=== PATIENT | male | born 1960 | race Caucasian/White ===

== ENCOUNTER 2018-04-08 15:13 | Outpatient (REF) | payer MEDICAID, SELFPAY ==
[2018-04-08 20:46] LABS: Albumin 3.7 g/dL (3.4-5.0); Calcium 8.8 mg/dL (8.5-10.1)
== END 2018-04-08 15:14 ==
LOC: NCHCN 15:13
PROVIDERS: PCP Nurse Practitioner Family; Visit Provider Registered Nurse
DX: E83.51 Hypocalcemia (principal)
CPT/HCPCS: 82040; 82310

== ENCOUNTER 2018-09-22 10:47 | Outpatient (REF) | payer MEDICAID, SELFPAY ==
[2018-09-22 21:28] LABS: Abs Immature Grans 0.02 k/cumm (0.0-0.09); Absolute Basophil Count 0.07 k/cumm (0.0-0.2); Absolute Eosinophil Count 0.17 k/cumm (0.0-0.7); Absolute Lymphocyte Count 1.13 k/cumm (1.2-3.4); Absolute Monocyte Count 1.04 k/cumm (0.11-0.7); Absolute Neutrophil Count 7.55 k/cumm (1.2-6.7); Basophils % 0.7; Eosinophils % 1.7; HCT 46.5 % (40.0-50.0); HGB 16.5 g/dL (13.5-17.5); Immature Grans % 0.2; Lymphocytes % 11.3; Mean Corp. HGB Concentration 35.5 g/dL (32.0-36.0); Mean Corpuscular Hemoglobin 32.3 pg (27.0-33.0); Mean Platelet Volume 10.3 fL (8.0-11.0); Monocytes % 10.4; Neutrophils % 75.7; Platelet Count 232 x1000/uL (130-400); RBC 5.11 m/cumm (4.50-6.00); RBC Distribution Width 12.8 % (11.8-14.1); White Blood Cell Count 9.98 k/cumm (4.4-10.8)
[2018-09-22 21:35] LABS: ALT 68 U/L (12-78); AST 82 U/L (15-37); Albumin 3.9 g/dL (3.4-5.0); Alkaline Phosphatase 98 U/L (46-116); Anion Gap 10.3 mmol/L (3-11); BUN 9 mg/dL (7-18); Bilirubin, Total 0.5 mg/dL (0.2-1.0); CO2 30.7 mmol/L (21.0-32.0); Calcium 9.2 mg/dL (8.5-10.1); Chloride 96 mmol/L (98-107); Glucose 111 mg/dL (70-100); Magnesium 1.6 mg/dL (1.8-2.4); Potassium 3.9 mmol/L (3.5-5.1); Sodium 137 mmol/L (136-145); Total Protein 8.1 g/dL (6.4-8.2)
== END 2018-09-22 11:07 ==
LOC: NCHCN 10:47
PROVIDERS: PCP Nurse Practitioner Family; Visit Provider Registered Nurse
DX: I10 Essential (primary) hypertension (principal); R05 Cough
CPT/HCPCS: 80053; 83735; 85025

== ENCOUNTER 2019-09-21 18:10 | Inpatient (IN) | payer MEDICAID, OTHER, SELFPAY ==
[2019-09-21] VITALS (54 sets, daily range): BP systolic 174–249; BP diastolic 99–173; PULSE 67–105; RESP 16–23; TEMP 36.1–36.9; O2SAT 93–97
[2019-09-21] MEDS: Oxymetazolone 0.05% SPRAY 15 ML BTL NS (18:25)
[2019-09-21 18:35] LABS: Abs Immature Grans 0.01 k/cumm (0.0-0.09); Absolute Basophil Count 0.13 k/cumm (0.0-0.2); Absolute Eosinophil Count 0.08 k/cumm (0.0-0.7); Absolute Lymphocyte Count 1.42 k/cumm (1.2-3.4); Absolute Neutrophil Count 5.94 k/cumm (1.2-6.7); Basophils % 1.5; Eosinophils % 0.9; HCT 41.9 % (40.0-50.0); HGB 14.8 g/dL (13.5-17.5); Immature Grans % 0.1 %; Lymphocytes % 16.6; Mean Corp. HGB Concentration 35.3 g/dL (32.0-36.0); Mean Corpuscular Volume 93.3 fL (80-95); Mean Platelet Volume 9.6 fL (8.0-11.0); Monocytes % 11.7; Neutrophils % 69.2; Platelet Count 254 x1000/uL (130-400); RBC 4.49 m/cumm (4.50-6.00); RBC Distribution Width 12.4 % (11.8-14.1); White Blood Cell Count 8.58 k/cumm (4.4-10.8)
--- NOTE | 2019-09-21 18:43 | DI.RAD_ITS ---
EXAM: XR CHEST 2V PA LATERAL CLINICAL HISTORY: cough 1 month TECHNIQUE: COMPARISON: No exams were available for comparison FINDINGS: Heart is not enlarged. Nodular opacity projected over left 6th rib anteriorly may represent nipple s hadow, question nodular opacity over right 6th rib anteriorly as well but asymmetric with the left. Additionally there is question vaguely nodular radiodensity seen more inferiorly projected over the l eft lung base and question of indistinct radiodensities projected anteriorly on the lateral view. Co nsidering the patient's history of persistent cough, possibility of consolidation or mass lesion woul d have to be considered. Additional evaluation with chest CT should be considered. IMPRESSION:
[2019-09-21 18:44] LABS: INR 1.1 (0.9-1.1)
[2019-09-21 18:46] LABS: ALT 88 U/L (16-63); AST 66 U/L (15-37); Albumin 4.1 g/dL (3.4-5.0); Alkaline Phosphatase 93 U/L (46-116); Anion Gap 10.5 mmol/L (3-11); BUN 14 mg/dL (7-18); CO2 30.5 mmol/L (21.0-32.0); CREATININE 0.89 mg/dL (0.70-1.30); Calcium 9.5 mg/dL (8.5-10.1); Chloride 95 mmol/L (98-107); Glucose 103 mg/dL (74-106); Potassium 3.3 mmol/L (3.5-5.1); Sodium 136 mmol/L (136-145); Total Protein 8.7 g/dL (6.4-8.2)
--- NOTE | 2019-09-21 18:46 | NUR.NOTE ---
Nursing Note: Nurse contacted two pharmacies that the patient stated he uses to get a medication list Spoke to the pharmacist at [facility] in [place], [place] who gave the following list but stated that it was last picked up in 2015 and was prescribed by a [facility] by Antony Miller: Magnesium Oxide 400mg Klor-Con 20 meq Hydroxazine 25 mg Hydrochlorathiazide 25 mg Sertraline 50 mg Lisinopril 20 mg Clonidine 0.1 mg Spoke to the pharmacist at [facility] in [place], [place] who gave the following list prescribed by Jaqueline Clemente HFA 230/21 (picked up 05/29/19) Albuterol 0.83% (not picked up 05/21) ProAir (3 inhalers) (picked up 05/29/19) Magnesium (picked up 01/18) Postassium (picked up 01/18) Celexa 20 mg (picked up 01/18) Patient stated that he does not use any other pharmacies.
--- NOTE | 2019-09-21 18:47 | ED.GENADUL_ITS ---
Discharge Plan Disposition Patient Disposition: [facility] INPATIENT Condition: Good Discharge Details Chief Complaint: Epistaxis Clinical Impression: Uncontrolled hypertension, Acute anterior epistaxis Admit Date/Time: 09/22/19 11:30 Admit Provider: Sreekanth Treviño Attending Provider: Carlos Padgett Primary Care Provider: FARIBA STOREY ED Provider: Gabriel Santos Discharge Data Discharge Date/Time-TO BE ENTERED AT DEPARTURE: 09/21/19 22:50 Medical Decision Making 18:50 --59-year-old male with history of hypertension, noncompliant with antihypertensives, here with bloody nose. Patient's pharmacy contacted and notes has not filled prescription for antihypertensives since 2016. He was on lisinopril 20 mg in the past. I will restart this. He apparently was also on hydrochlorothiazide and clonidine in the past. Patient also notes cough for the past 1 month. Consider pneumonia. Plan to check chest x-ray. Single squirt of Afrin was administered to bilateral nose and nasal clamp applied. --On reassessment BP remained elevated. He was given lisinopril 20 mg without response. Clonidine 0.1 mg administered. Labs reviewed and mild hypokalemia of 3.3 noted. AST and ALT mildly elevated. Platelets and INR normal. 20:00 --nasal clamp was removed and patient had persistent epistaxis. Patient provided informed consent to proceed with nasal packing. Rapid Rhino nasal packing inserted left nare and patient had resolution of epistaxis. -- Blood pressure remains elevated. Plan to give labetalol 20 mg IV. Plan for admission to control blood pressure. Chest x-ray was reviewed and interpreted by radiology: IMPRESSION: 1. Small nodular opacity at the left lung base may reflect nipple shadow. Consider repeat radiograph with nipple markers. 2. Additional small nodular opacity in the mid-lower left lung. Consider further evaluation with CT or recommend follow-up radiograph to document stability/resolution. Will treat with Augmentin prophylactically for posterior nasal packing and will cover for questionable opacity on chest x-ray with associated cough. Patient will need admission for blood pressure control. I called and spoke with Dr. Treviño, discussed ED presentation and course, he will evaluate the patient for admission. HPI General Date/Time Provider Initiated Documentation: 09/21/19 18:13 . Limitations to Documentation: no limitations . HPI Narrative: 59-year-old male with history of hypertension, noncompliant with antihypertensive medications, here in custody of corrections, with chief complaint of bloody nose. Patient notes he had bloody nose since 6 AM this morning. No trauma. Nose is been oozing from bilateral nares. Patient states he has not taken his antihypertensives in weeks. Patient also states cough over the past 1 month. No fevers. No shortness of breath. No chest pain. Patient denies alcohol use or drug use. Related Data Home Medications Medication Instructions Recorded Confirmed albuterol sulfate 2 puff INHALATION Q4H PRN PRN 09/22/19 09/22/19 fluticasone propion-salmeterol 2 puff INHALATION BID 09/22/19 09/22/19 [Advair HFA] albuterol sulfate 2 puff IH Q6H PRN #18 gm 09/26/19 amlodipine 10 mg PO DAILY #30 tab 09/26/19 benzonatate 100 mg PO TID PRN #30 cap 09/26/19 budesonide-formoterol [Symbicort] 2 puff INHALATION BID #1 g 09/26/19 clonidine HCl [Catapres] 0.1 mg PO TID #90 tab 09/26/19 hydralazine 10 mg PO TID #90 tab 09/26/19 labetalol 200 mg PO BID #60 tab 09/26/19 lisinopril 40 mg PO DAILY #30 tab 09/26/19 multivitamin,zh-upki-oshqhzqz 1 tab PO DAILY #30 tab 09/26/19 [Therems-M] nicotine 7 mg TRANSDERMAL DAILY #30 ea 09/26/19 spironolactone 50 mg PO DAILY #30 tab 09/26/19 Previous Rx's Medication Instructions Recorded albuterol sulfate 2 puff IH Q6H PRN #18 gm 09/26/19 amlodipine 10 mg PO DAILY #30 tab 09/26/19 benzonatate 100 mg PO TID PRN #30 cap 09/26/19 budesonide-formoterol [Symbicort] 2 puff INHALATION BID #1 g 09/26/19 clonidine HCl [Catapres] 0.1 mg PO TID #90 tab 09/26/19 hydralazine 10 mg PO TID #90 tab 09/26/19 labetalol 200 mg PO BID #60 tab 09/26/19 lisinopril 40 mg PO DAILY #30 tab 09/26/19 multivitamin,sp-tkgn-cgieaxtm 1 tab PO DAILY #30 tab 09/26/19 [Therems-M] nicotine 7 mg TRANSDERMAL DAILY #30 ea 09/26/19 spironolactone 50 mg PO DAILY #30 tab 09/26/19 Allergies Allergy/AdvReac Type Severity Reaction Status Date / Time No Known Allergies Allergy Unverified 09/21/19 18:19 General Stated Complaint: Epistaxis INDY: 3 Review of Systems All systems reviewed & are unremarkable except as noted in HPI and below Constitutional Constitutional: Denies fever(s) Cardiovascular Cardiovascular: Denies dyspnea Respiratory Respiratory: Reports cough and Denies dyspnea [facility] Medical History (Updated 09/22/19 @ 11:39 by Cynthia Thao MD) COPD (chronic obstructive pulmonary disease) (Inactive) Hypertension (Inactive) Social History Smoking/Tobacco Use Status: Current every day Exam Const General: cooperative and no acute distress HENMT Head: normocephalic and atraumatic General nose exam: nasal discharge bloody bilaterally Mouth: moist mucous membranes Throat: posterior oropharynx normal Eyes Conjunctivae: normal conjunctivae Sclera: normal sclerae Neck Neck: trachea midline and supple Resp Effort & Inspection: normal respiratory effort, able to speak in complete sentences, not labored and not tachypneic Auscultation: rhonchi and no wheezes Cardio Jugular venous pressure: no JVD Rate: regular rate and not tachycardic Rhythm: regular rhythm GI Palpation: soft, not firm, no guarding, no masses, not rigid and nontender Skin General skin exam: no rashes or lesions noted Neuro General: alert, awake and tone normal Extrem General: no edema Psych Appearance: grossly normal Mental Status: mental status grossly normal Course Vital Signs Vital signs: Vital Signs Temperature 36.1 C L 09/21/19 18:13 Pulse 105 H 09/21/19 18:13 Respiratory Rate 20 09/21/19 18:13 Blood Pressure 209/144 H 09/21/19 18:13 Pulse Oximetry 96 09/21/19 18:13 Temperature 36.1 C L 09/21/19 18:13 Temperature Source Skin 09/21/19 18:13 Pulse 105 H 09/21/19 18:13 Respiratory Rate 20 09/21/19 18:13 Blood Pressure 209/144 H 09/21/19 18:13 Blood Pressure Position Sitting 09/21/19 18:13 Pulse Oximetry 96 09/21/19 18:13 Oxygen Delivery Method Room Air 09/21/19 18:13 Oxygen Flow Rate 0 09/21/19 18:13 Pain Level 5 09/21/19 18:13 Lab/Test Results Lab/Test Results: Laboratory Tests Range/Units 09/21/19 18:25 WBC (4.4-10.8) k/cumm 8.58 RBC (4.50-6.00) m/cumm 4.49 L Hgb (13.5-17.5) g/dL 14.8 Hct (40.0-50.0) % 41.9 MCV (80-95) fL 93.3 MCH (27.0-33.0) pg 33.0 MCHC (32.0-36.0) g/dL 35.3 RDW (11.8-14.1) % 12.4 Plt Count (130-400) x1000/uL 254 MPV (8.0-11.0) fL 9.6 Immature Gran % % 0.1 Neutrophils % 69.2 Lymphocytes % 16.6 Monocytes % 11.7 Eosinophils % 0.9 Basophils % 1.5 Absolute Neutrophils (1.2-6.7) k/cumm 5.94 Absolute Lymphocytes (1.2-3.4) k/cumm 1.42 Absolute Monocytes (0.11-0.7) k/cumm 1.00 H Absolute Eosinophils (0.0-0.7) k/cumm 0.08 Absolute Basophils (0.0-0.2) k/cumm 0.13 Procedures Epistaxis Control Time Out Performed: Yes Nostril: left Nose Prepped With: oxymetazoline Direct Inspection: unable to visualize Clots Removed by: blowing nose Device Inserted: hemostatic balloon (rapid rhino) Patient Tolerated Procedure: well and no complications Critical Care Time Critical Care Time Critical Care Time: Yes Total Critical Care Time: 45 Attestation: I spent greater than 45 minutes addressing this patient's life threats and providing critical care
[2019-09-21] MEDS: Lisinopril 10 MG TAB 20 MG PO (19:03)
--- NOTE | 2019-09-21 19:10 | DI.VRAD_ITS ---
PROCEDURE INFORMATION: Exam: XR Chest, 2 Views Exam date and time: 09/21/2019 6:45 PM Age: 59 years old Clinical indication: Patient HX: Cough 1 month TECHNIQUE: Imaging protocol: XR of the chest Views: 2 views. COMPARISON: No relevant prior studies available. FINDINGS: Lungs: Small nodular left basilar opacity. Additional small nodule in the mid-lower left lung Lungs are otherwise clear. Pleural space: Unremarkable. No pleural effusion. No pneumothorax. Heart/Mediastinum: Unremarkable. No cardiomegaly. Bones/joints: Unremarkable. IMPRESSION: 1. Small nodular opacity at the left lung base may reflect nipple shadow. Consider repeat radiograph with nipple markers. 2. Additional small nodular opacity in the mid-lower left lung. Consider further evaluation with CT or recommend follow-up radiograph to document stability/resolution. Dictated and Authenticated by: Garrett Paz MD. Ordering:SUZAN Rios MD
[2019-09-21] MEDS: cloNIDine 0.1 MG TAB PO (19:33)
[2019-09-21] MEDS: Labetalol 100 MG/20 ML VIAL 20 MG IVP ×2 (20:38→21:28)
--- NOTE | 2019-09-21 20:50 | W.PM.HP.N ---
Date of service: 09/21/19 Time of Service: 20:50 Assessment and Plan Assessment and plan (1) Hypertension: Status: Chronic Assessment and plan: Uncontrolled hypertension, at tthis point presumed due to non-compliance. Epistaxis is quite possibly direcct effect. Is responing well to current program, will continue Labetalol, Clonidine and Lisinopril .As per ENT protocol (this was saidd to be a posterior packing) will continue prophylactic Augmentin. As to ? pulmonary nodule, will obtain CT. History of Present Illness History of Present Illness Chief Complaint: epistaxis Narrative: 59 male with h/o HTN, off meds for some number of weeks, or longer. Here today with epistaxis all day. In ER findings of note for severe HTN, ass high as 240/170 at one point. Patient had nasal pack placed, and has received 0.1 mg Clonidine, 20 mg Lisinopril and 20 mg Labetalol. In addition was started on Augmentin 875 bid. Latest BP 191/116. Admitted for further management. Incidental finding of possible pulmonary nodule x 2 on CXR. patient is a smoker, and says he has had a cough for at least a month. Review of Systems All systems reviewed & are unremarkable except as noted in HPI and below PFSH Medical History Hypertension (Inactive) Meds Home Medications and Allergies Home Medications Medication Instructions Recorded Confirmed Type Unknown [No Known Home Meds] 09/21/19 09/21/19 History Allergies Allergy/AdvReac Type Severity Reaction Status Date / Time No Known Allergies Allergy Unverified 09/21/19 18:19 Exam Narrative Exam Narrative: 191/116, 80, 16, 36.1, HEENT pack left narus, slight oozing. Neck supple; lungs scatteered rhonchi; heart distant but RRR; abdomen soft and NT; extremities w/o edema; neuro Ox3, moves all 4s Results Labs Result diagrams: 09/21/19 18:25 09/21/19 18:25 Labs: Laboratory Results - last 24 hr 09/21/19 09/21/19 09/21/19 18:25 18:25 18:25 WBC 8.58 RBC 4.49 L Hgb 14.8 Hct 41.9 MCV 93.3 MCH 33.0 MCHC 35.3 RDW 12.4 Plt Count 254 MPV 9.6 Immature Gran % 0.1 Neutrophils % 69.2 Lymphocytes % 16.6 Monocytes % 11.7 Eosinophils % 0.9 Basophils % 1.5 Absolute Neutrophils 5.94 Absolute Lymphocytes 1.42 Absolute Monocytes 1.00 H Absolute Eosinophils 0.08 Absolute Basophils 0.13 PT 11.0 INR 1.1 Sodium 136 Potassium 3.3 L Chloride 95 L Carbon Dioxide 30.5 Anion Gap 10.5 BUN 14 Creatinine 0.89 Estimated GFR/1.73 m2 >= 60.00 Glucose 103 Calcium 9.5 Total Bilirubin 1.0 AST 66 H ALT 88 H Alkaline Phosphatase 93 Total Protein 8.7 H Albumin 4.1 Last Vital Signs Temp 36.1 C L 09/21/19 18:13 Pulse 80 09/21/19 20:38 Resp 16 09/21/19 20:16 BP 213/119 H 09/21/19 20:38 Pulse Ox 94 L 09/21/19 20:16
[2019-09-21] MEDS: Amoxicillin 875/Clav. 125 TAB PO (20:54)
[2019-09-21] MEDS: Potassium Chloride 20 MEQ TABCR PO (22:08)
[2019-09-21] MEDS: Labetalol 100 MG TAB 200 MG PO (22:08)
[2019-09-21] MEDS: Acetaminophen 325 MG TAB 650 MG PO (23:42)
[2019-09-22] VITALS (122 sets, daily range): BP systolic 101–231; BP diastolic 51–146; PULSE 60–100; RESP 12–29; TEMP 36.5–37.2; O2SAT 89–98
[2019-09-22] MEDS: Normal Saline Flush 10 ML SYR IVP (02:16)
[2019-09-22] MEDS: Acetaminophen 325 MG TAB 650 MG PO ×4 (03:51→22:21)
[2019-09-22] MEDS: hydrALAZINE 10 MG TAB PO ×2 (03:52→06:44)
[2019-09-22] MEDS: Labetalol 100 MG TAB 200 MG PO ×2 (06:43→20:38)
--- NOTE | 2019-09-22 07:46 | INITIAL_ITS ---
- If Service Date Differs Date of service: 09/22/19 Time of Service: 07:46 Care Management Initial Assess REASON FOR HOSPITALIZATION:: Hypertension, Epistaxis PAST MEDICAL HISTORY/PAST SURGICAL HISTORY:: HTN PREVIOUS FUNCTIONAL STATUS/SOCIAL/FAMILY SUPPORTS:: Nick currently [facility] at the [facility] is able to attend to his own needs and indepedent with ADL's. CURRENT FUNCTIONAL STATUS:: Nick is lying in bed he is alert. Guards are present. Nick may be able to return to the correctional facility today pending cessation of the bleeding and blood pressure control. ADVANCE DIRECTIVES:: None on file - offered forms and assitance with completion Has patient been provided with information about the portal?: Yes CODE STATUS:: Full Code INSURANCE COVERAGE / FINANCIAL ISSUES:: [employer], [facility] CURRENT HOME/COMMUNITY SERVICES/EQUIPMENT:: Patient is currently lodged at the [facility] in [facility] PRIMARY CARE PHYSICIAN:: Provider at the [facility] POTENTIAL DISCHARGE NEEDS:: Follow up as determined by provider and ongoing management of HTN PATIENT/FAMILY EDUCATION NEEDS:: Discharge education, limitations and follow up plan of care including ask me three and self management. ANTICIPATED BARRIERS TO DISCHARGE:: None identified TRANSPORTATION:: Via mid level provider coordinated through [facility]. PLAN:: Nick is currently being treated as an observation for HTN. He will be discharged back to the correctional facility at time of discharge, with correctional facility staff coordinated by their staff.
[2019-09-22 08:04] LABS: Abs Immature Grans 0.01 k/cumm (0.0-0.09); Absolute Basophil Count 0.08 k/cumm (0.0-0.2); Absolute Eosinophil Count 0.16 k/cumm (0.0-0.7); Absolute Lymphocyte Count 1.07 k/cumm (1.2-3.4); Absolute Monocyte Count 0.66 k/cumm (0.11-0.7); Absolute Neutrophil Count 3.74 k/cumm (1.2-6.7); Basophils % 1.4; Eosinophils % 2.8; HCT 39.8 % (40.0-50.0); HGB 13.8 g/dL (13.5-17.5); Immature Grans % 0.2 %; Lymphocytes % 18.7; Mean Corp. HGB Concentration 34.7 g/dL (32.0-36.0); Mean Corpuscular Hemoglobin 32.7 pg (27.0-33.0); Mean Corpuscular Volume 94.3 fL (80-95); Mean Platelet Volume 9.5 fL (8.0-11.0); Monocytes % 11.5; Neutrophils % 65.4; Platelet Count 220 x1000/uL (130-400); RBC 4.22 m/cumm (4.50-6.00); RBC Distribution Width 12.3 % (11.8-14.1); White Blood Cell Count 5.72 k/cumm (4.4-10.8)
--- NOTE | 2019-09-22 08:21 | W.PM.PROGNOT ---
Date of Service Date of service: 09/22/19 Time of Service: 11:24 Assessment and Plan Assessment and plan (1) Hypertensive urgency: Status: Acute Assessment and plan: Add norvasc, prn metoprolol. Continue to monitor in ICU - if BP remains uncontrolled, would start cardene gtt. (2) Epistaxis: Status: Acute Assessment and plan: Provide clip/apply pressure to the nasal trumpet in place. Continue augmentin to prevent toxic shock syndrome. (3) Acute exacerbation of chronic obstructive pulmonary disease (COPD): Status: Acute Assessment and plan: Mild - there is no evidence of pneumonia or mass on CT (CXR read was not definitive). Obtaining sputum culture. Provide nebs. I spoke with patient's pharmacy - he normally take albuterol and advair. We will replace that with symbicort here. Add doxycycline to augmentin to cover for atypical organisms. No role for steroids at this time. (4) Hypokalemia: Status: Acute Assessment and plan: Replete; recheck in am (5) Hypomagnesemia: Status: Acute Assessment and plan: Replete, recheck in am (6) Discharge planning issues: Status: Acute Assessment and plan: Full code. Keep in ICU. Admit to inpatient status. Total Critical Care Time 40 minutes. (7) DVT prophylaxis: Status: Acute Assessment and plan: TEDs + SCD's. Avoid chemical dvt ppx in setting of acute bleeding. Subjective Subjective Interval history since last seen: Latest BP 211/123. Patient states he felt dizzy earlier, but does not now. Denies chest pain, states he has been short of breath and had had a productive cough with yellow sputum x 1 month. Denies n/v. Nasal trumpet is saturated and dripping. Seen by Dr Dumas, who recommended using a clip and applying pressure, but not removing/exchanging trumpet. Nursing noted crackles/wheezes in the lungs this morning, better with albuterol inhaler. Patient states he takes 2 inhalers at home. One is albuterol; he is not sure what the 2nd one is. He fills his prescriptions at [facility] in [place]. Exam Narrative Exam Narrative: General: Pleasant middle-aged male, sitting up in bed, wiping nose with trumpet in L nostril - leaking HEENT: EOMI, MMM Heart: RRR, no m/r/g Lungs: Diminished breath sounds B Abdomen: soft, nontender, nondistended. Extremities: no e/c/c BLE's, 2+ pedal pulses B Objective Objective Clinical Data: Abnormal lab results 09/21/19 09/21/19 09/22/19 Range/Units 18:25 18:25 08:00 RBC 4.49 L 4.22 L (4.50-6.00) m/cumm Hct 39.8 L (40.0-50.0) % Absolute Lymphocytes 1.07 L (1.2-3.4) k/cumm Absolute Monocytes 1.00 H (0.11-0.7) k/cumm Potassium 3.3 L (3.5-5.1) mmol/L Chloride 95 L (98-107) mmol/L AST 66 H (15-37) U/L ALT 88 H (16-63) U/L Total Protein 8.7 H (6.4-8.2) g/dL Vital Signs Temperature 36.5 C 09/22/19 03:01 Temperature Source Temporal Artery Scan 09/21/19 23:19 Pulse 69 09/22/19 02:31 Pulse 70 09/22/19 02:31 Respiratory Rate 16 09/22/19 02:31 Respiratory Effort 09/22/19 03:01 Respiratory Depth Normal 09/22/19 03:01 Respiratory Pattern Normal 09/22/19 03:01 Blood Pressure 191/104 H 09/22/19 02:31 Blood Pressure Mean 124 09/22/19 02:31 Blood Pressure Position Sitting 09/21/19 18:13 Pulse Oximetry 96 09/22/19 02:31 Oxygen Delivery Method Room Air 09/22/19 03:01 Oxygen Flow Rate 0 09/22/19 03:01 Pain Level 7 09/22/19 03:51 Intake & Output 09/21/19 09/21/19 09/22/19 11:59 23:59 11:59 Intake Total 300 / 300 Balance 300 / 300 Weight 80 kg Intake: Oral 300 / 300 Laboratory Results WBC 5.72 k/cumm (4.4-10.8) D 09/22/19 08:00 RBC 4.22 m/cumm (4.50-6.00) L 09/22/19 08:00 Hgb 13.8 g/dL (13.5-17.5) 09/22/19 08:00 Hct 39.8 % (40.0-50.0) L 09/22/19 08:00 MCV 94.3 fL (80-95) 09/22/19 08:00 MCH 32.7 pg (27.0-33.0) 09/22/19 08:00 MCHC 34.7 g/dL (32.0-36.0) 09/22/19 08:00 RDW 12.3 % (11.8-14.1) 09/22/19 08:00 Plt Count 220 x1000/uL (130-400) 09/22/19 08:00 MPV 9.5 fL (8.0-11.0) 09/22/19 08:00 Immature Gran % 0.2 % 09/22/19 08:00 Neutrophils % 65.4 09/22/19 08:00 Lymphocytes % 18.7 09/22/19 08:00 Monocytes % 11.5 09/22/19 08:00 Eosinophils % 2.8 09/22/19 08:00 Basophils % 1.4 09/22/19 08:00 Absolute Neutrophils 3.74 k/cumm (1.2-6.7) 09/22/19 08:00 Absolute Lymphocytes 1.07 k/cumm (1.2-3.4) L 09/22/19 08:00 Absolute Monocytes 0.66 k/cumm (0.11-0.7) 09/22/19 08:00 Absolute Eosinophils 0.16 k/cumm (0.0-0.7) 09/22/19 08:00 Absolute Basophils 0.08 k/cumm (0.0-0.2) 09/22/19 08:00 PT 11.0 sec (9.3-11.0) 09/21/19 18:25 INR 1.1 (0.9-1.1) 09/21/19 18:25 Sodium 136 mmol/L (136-145) 09/21/19 18:25 Potassium 3.3 mmol/L (3.5-5.1) L 09/21/19 18:25 Chloride 95 mmol/L (98-107) L 09/21/19 18:25 Carbon Dioxide 30.5 mmol/L (21.0-32.0) 09/21/19 18:25 Anion Gap 10.5 mmol/L (3-11) 09/21/19 18:25 BUN 14 mg/dL (7-18) 09/21/19 18:25 Creatinine 0.89 mg/dL (0.70-1.30) 09/21/19 18:25 Estimated GFR/1.73 m2 >= 60.00 (mL/min/1.73m2) 09/21/19 18:25 Glucose 103 mg/dL (74-106) 09/21/19 18:25 Calcium 9.5 mg/dL (8.5-10.1) 09/21/19 18:25 Total Bilirubin 1.0 mg/dL (0.2-1.0) 09/21/19 18:25 AST 66 U/L (15-37) H 09/21/19 18:25 ALT 88 U/L (16-63) H 09/21/19 18:25 Alkaline Phosphatase 93 U/L (46-116) 09/21/19 18:25 Total Protein 8.7 g/dL (6.4-8.2) H 09/21/19 18:25 Albumin 4.1 g/dL (3.4-5.0) 09/21/19 18:25
[2019-09-22 08:22] LABS: Anion Gap 9.7 mmol/L (3-11); BUN 14 mg/dL (7-18); CO2 30.3 mmol/L (21.0-32.0); CREATININE 0.93 mg/dL (0.70-1.30); Chloride 96 mmol/L (98-107); Glucose 127 mg/dL (74-106); Magnesium 1.2 mg/dL (1.8-2.4); Potassium 3.1 mmol/L (3.5-5.1); Sodium 136 mmol/L (136-145)
[2019-09-22 08:31] LABS: Troponin I < 0.05 ng/Ml (<0.06)
[2019-09-22] MEDS: Albuterol 2.5 MG/3 ML INH SOLN VIAL UPD ×2 (08:38→14:10)
[2019-09-22] MEDS: Lisinopril 20 MG TAB PO (08:39)
[2019-09-22] MEDS: Multivitamin w/Minerals TAB 1 TAB PO (08:39)
[2019-09-22] MEDS: Amoxicillin 875/Clav. 125 TAB PO ×2 (08:39→20:38)
[2019-09-22] MEDS: Thiamine 100 MG TAB PO (08:39)
[2019-09-22] MEDS: Omnipaque 350 MG/ML 100 ML BTL IJ (09:24)
--- NOTE | 2019-09-22 09:35 | DI.CT_ITS ---
EXAM: CT CHEST W CLINICAL HISTORY: PNA vs malignancy TECHNIQUE: The exam was performed according to the usual protocol. COMPARISON: No exams were available for comparison FINDINGS: CT examination of the chest was performed with intravenous infusion of 70 cc of Omnipaque 350. Image s obtained through the upper abdomen show hepatic steatosis and show unremarkable appearance of visua lized portions of spleen, adrenals, kidneys and pancreas. There is moderate generalized central lobular emphysema. No intrapulmonary mass. No significant con solidation. Minimal nonspecific perihilar ground-glass opacities on the left. Tracheobronchial tree appears intact. No mediastinal or hilar adenopathy. Thoracic aorta and major branches appear intac t. Pulmonary arterial circulation suboptimally opacified, no central pulmonary embolus identified. No pleural effusion. IMPRESSION: No pulmonary nodule or consolidation. Moderate central lobular emphysema noted. Hepatic steatosis noted.
[2019-09-22 10:19] LABS: Bilirubin Negative (Negative); Blood Small (Negative); Clarity Clear (Clear); Glucose Negative (Negative); Ketones Negative (Negative); Leukocyte Esterase Negative (Negative); Nitrite Negative (Negative)
[2019-09-22 10:27] LABS: Bacteria Rare HPF (Negative); Casts Negative LPF (Negative); Crystals Negative HPF (Negative); Epithelial Cells Rare HPF (Negative); Mucus Trace (Negative); RBC 20-50 HPF (0-2)
[2019-09-22 10:28] LABS: C & S Indicated? Yes
[2019-09-22 10:32] LABS: *AMPHETAMINES SCREEN URINE Negative (Negative); *BARBITURATES SCREEN URINE Negative (Negative); *BENZODIAZEPINES SCREEN URINE Negative (Negative); Cannabinoids THC Negative (Negative); Cocaine Screen,Urine Negative (Negative); METHADONE URINE SCREEN Negative (Negative); OPIATES URINE SCREEN Negative (Negative)
[2019-09-22 10:33] LABS: Tricyclic Antidepressants Negative (Negative)
[2019-09-22] MEDS: Magnesium Chloride 64 MG TABCR PO ×2 (11:01→20:00)
[2019-09-22] MEDS: DOXYCYCLINE 100 MG in Normal Saline 100 ML IVPB ×2 (11:02→22:23)
[2019-09-22] MEDS: POTASSIUM CHLORIDE 20 MEQ/100 ML BAG 50 MEQ IVPB ×2 (11:03→14:16)
[2019-09-22] MEDS: MAGNESIUM SULFATE 4 GM/100 ML BAG IVPB (11:22)
[2019-09-22] MEDS: amLODIPine 5 MG TAB PO (11:33)
[2019-09-22] MEDS: Nicotine 7 MG/24 HR PATCH TD (11:36)
[2019-09-22] MEDS: Metoprolol 5 MG/5 ML VIAL IVP (11:49)
--- NOTE | 2019-09-22 12:43 | PHARADMIT ---
Admission Pharmacy Clinical Review HYPERTENSIVE URGENCY, EPISTAXIS Code Status Full Code Current Weight 80 kg Renally Cleared and Narrow Therapeutic Index Meds CrCl ~87ml/min QTc Value / Action Taken n/a BP Control, Fever BP 214/119 Electrolytes reviewed Na 136, K+ 3.1, Mag 1.2 DVT Prophylaxis TEDs and SCDs (acute bleed) Opiate Usage / Scheduled Bowel Regimen Ordered None Plt/SCr for Heparin / Enoxaparin plt 220, Scr 0.93 INR for Warfarin H/H stable, WBC/Bands H/H 13.9/39.8, WBC 5.72 Antibiotic appropriateness Augmentin + Doxycycline (atypical coverage, copd exac) Cultures and Sensitivities Sputum: mixed gram+/-; urine pending Surgical ABX d/c within 24 hr DM control / Insulin Dosing None Heart Failure (Check EF%) (FREDDIE's, B-Block, Diuretics) amlodipine, clonidine (on hold), labetalol, lisinopril, metoprolol ivp prn, nicardipine gtt (started 09/22 ~1300) IV to PO Switch Home Meds Reviewed Yes pt bad historian/noncompliance Home Meds Not Ordered symbicort ordered in place of advair Comments Drug screen negative Augmentin started prophylactically for posterior nasal packing (prevent TSS), doxy added to cover atypicals Nicardipine gtt started ~1300 at 5mg/hr
[2019-09-22] MEDS: niCARdipine 25 MG in Normal Saline 240 ML 50 MG IV ×2 (13:19→18:21)
[2019-09-22] MEDS: cloNIDine 0.1 MG TAB PO (20:40)
[2019-09-23] VITALS (77 sets, daily range): BP systolic 106–194; BP diastolic 55–124; PULSE 67–94; RESP 12–22; TEMP 36–37; O2SAT 93–98
--- NOTE | 2019-09-23 01:36 | NUR.NOTE ---
BP down to101/72, 108/53, gtt stopped after being decreased to 2.5 mg. Bp now starting to increase. currently 146/79. Gtt remains off for now. Bp closely monitored. see vs.Nursing Note:
[2019-09-23] MEDS: niCARdipine 25 MG in Normal Saline 240 ML IV (02:33)
[2019-09-23] MEDS: Acetaminophen 325 MG TAB 650 MG PO ×2 (02:52→09:21)
[2019-09-23 06:37] LABS: HCT 37.7 % (40.0-50.0); Mean Corp. HGB Concentration 34.5 g/dL (32.0-36.0); Mean Corpuscular Hemoglobin 32.5 pg (27.0-33.0); Mean Corpuscular Volume 94.3 fL (80-95); Mean Platelet Volume 10.2 fL (8.0-11.0); Platelet Count 218 x1000/uL (130-400); RBC Distribution Width 12.1 % (11.8-14.1); White Blood Cell Count 5.52 k/cumm (4.4-10.8)
[2019-09-23 06:57] LABS: Anion Gap 9.9 mmol/L (3-11); BUN 12 mg/dL (7-18); CO2 29.1 mmol/L (21.0-32.0); CREATININE 0.84 mg/dL (0.70-1.30); Calcium 8.8 mg/dL (8.5-10.1); Calculated LDL 69 mg/dL; Chloride 98 mmol/L (98-107); Cholesterol 167 mg/dL (<200); Glucose 114 mg/dL (74-106); HDL Cholesterol 86 mg/dL (40-60); Magnesium 1.6 mg/dL (1.8-2.4); Sodium 137 mmol/L (136-145); Triglyceride 61 mg/dL (<150)
[2019-09-23 06:59] LABS: Potassium 2.9 mmol/L (3.5-5.1)
--- NOTE | 2019-09-23 08:29 | PGE_ITS ---
Date of Service Date of service: 09/23/19 Time of Service: 12:21 Assessment and Plan Assessment and plan (1) Hypertensive urgency: Status: Acute Assessment and plan: BP's better right now. Will monitor off cardene gtt for several hours prior to making a decision re transfer out of ICU. Continue norvasc, labetalol 200 mg PO BID, clonidine, lisinopril. Continue prn metoprolol. If need to augment therapy, would consider spironolactone. (2) Epistaxis: Status: Acute Assessment and plan: Better. We discussed how the patient shouldn't try to create suction to his nasal secretions when he tastes the blood in the back of his throat. Continue augmentin to prevent toxic shock syndrome. (3) Acute exacerbation of chronic obstructive pulmonary disease (COPD): Status: Acute Assessment and plan: Mild - there is no evidence of pneumonia or mass on CT (CXR read was not definitive). Continue symbicort, nebs prn, doxycycline, augmentin. Add antitussives. No role for steroids at this time. (4) Hypokalemia: Status: Acute Assessment and plan: Replete; recheck in am (5) Hypomagnesemia: Status: Acute Assessment and plan: Replete, recheck in am (6) Discharge planning issues: Status: Acute Assessment and plan: Full code. Keep in ICU for now. May be able to transfer out if BP's remain stable for the remainder of the day. (7) DVT prophylaxis: Status: Acute Assessment and plan: TEDs + SCD's. Avoid chemical dvt ppx in setting of acute bleeding. Subjective Subjective Interval history since last seen: BP's now in 140's - off of cardene gtt x 1 hr. States he feels a little dizzy right now, but not as dizzy as he did an hour and a half ago. Denies chest pain, states he thinks he has a cold and endorses shortness of breath/cough, denies n/v. His nasal trumpet stop leaking, but he still tastes blood in the back of his throat. Exam Narrative Exam Narrative: General: Pleasant middle-aged male, sitting up in bed, no leaking from nasal trumpet L nostril. HEENT: EOMI, MMM Heart: RRR, no m/r/g Lungs: Diminished breath sounds B Abdomen: soft, nontender, nondistended. Extremities: no e/c/c BLE's, 2+ pedal pulses B Objective Objective Clinical Data: Abnormal lab results 09/22/19 09/22/19 09/23/19 Range/Units 08:00 10:00 06:05 RBC (4.50-6.00) m/cumm Hgb (13.5-17.5) g/dL Hct (40.0-50.0) % Potassium 3.1 L 2.9 L* (3.5-5.1) mmol/L Chloride 96 L (98-107) mmol/L Glucose 127 H 114 H (74-106) mg/dL Magnesium 1.2 L 1.6 L (1.8-2.4) mg/dL Urine Protein 100 H (Negative) mg/dL Urine Blood Small H (Negative) Urine Urobilinogen 1.0 H (Up TO 0.2) EU/dL Urine RBC 20-50 H (0-2) HPF 09/23/19 Range/Units 06:05 RBC 4.00 L (4.50-6.00) m/cumm Hgb 13.0 L (13.5-17.5) g/dL Hct 37.7 L (40.0-50.0) % Potassium (3.5-5.1) mmol/L Chloride (98-107) mmol/L Glucose (74-106) mg/dL Magnesium (1.8-2.4) mg/dL Urine Protein (Negative) mg/dL Urine Blood (Negative) Urine Urobilinogen (Up TO 0.2) EU/dL Urine RBC (0-2) HPF Vital Signs Temperature 37 C 09/23/19 04:28 Temperature Source Temporal Artery Scan 09/23/19 04:28 Pulse 79 09/23/19 06:01 Pulse 83 09/23/19 06:01 Respiratory Rate 16 09/23/19 06:01 Respiratory Effort 09/23/19 04:28 Respiratory Depth Normal 09/23/19 04:28 Respiratory Pattern Normal 09/23/19 04:28 Blood Pressure 154/68 H 09/23/19 06:01 Blood Pressure Mean 90 09/23/19 06:01 Blood Pressure Position Supine 09/23/19 04:28 Pulse Oximetry 97 09/23/19 04:28 Oxygen Delivery Method Room Air 09/23/19 04:28 Oxygen Flow Rate 0 09/23/19 04:28 Pain Level 3 09/23/19 04:28 Intake & Output 09/22/19 09/22/19 09/23/19 11:59 23:59 11:59 Intake Total 600 / 1982.5 1382.5 / 1982.5 80.417 / 80.417 Output Total 200 / 200 1300 / 1300 Balance 600 / 1782.5 1182.5 / 1782.5 -1219.583 / -1219.583 Intake: IV 882.5 / 882.5 80.417 / 80.417 Oral 600 / 1100 500 / 1100 Output: Urine 200 / 200 1300 / 1300 Other: Urine Color Dark Leeann Light Leeann Urine Appearance Clear Clear Urine Odor None Comment voiding in urinal. urine clear dark leeann voiding in urinal. urine clear dark leeann Voiding Methods Urinal Urinal Laboratory Results WBC 5.52 k/cumm (4.4-10.8) 09/23/19 06:05 RBC 4.00 m/cumm (4.50-6.00) L 09/23/19 06:05 Hgb 13.0 g/dL (13.5-17.5) L 09/23/19 06:05 Hct 37.7 % (40.0-50.0) L 09/23/19 06:05 MCV 94.3 fL (80-95) 09/23/19 06:05 MCH 32.5 pg (27.0-33.0) 09/23/19 06:05 MCHC 34.5 g/dL (32.0-36.0) 09/23/19 06:05 RDW 12.1 % (11.8-14.1) 09/23/19 06:05 Plt Count 218 x1000/uL (130-400) 09/23/19 06:05 MPV 10.2 fL (8.0-11.0) 09/23/19 06:05 Immature Gran % 0.2 % 09/22/19 08:00 Neutrophils % 65.4 09/22/19 08:00 Lymphocytes % 18.7 09/22/19 08:00 Monocytes % 11.5 09/22/19 08:00 Eosinophils % 2.8 09/22/19 08:00 Basophils % 1.4 09/22/19 08:00 Absolute Neutrophils 3.74 k/cumm (1.2-6.7) 09/22/19 08:00 Absolute Lymphocytes 1.07 k/cumm (1.2-3.4) L 09/22/19 08:00 Absolute Monocytes 0.66 k/cumm (0.11-0.7) 09/22/19 08:00 Absolute Eosinophils 0.16 k/cumm (0.0-0.7) 09/22/19 08:00 Absolute Basophils 0.08 k/cumm (0.0-0.2) 09/22/19 08:00 PT 11.0 sec (9.3-11.0) 09/21/19 18:25 INR 1.1 (0.9-1.1) 09/21/19 18:25 Sodium 137 mmol/L (136-145) 09/23/19 06:05 Potassium 2.9 mmol/L (3.5-5.1) L* 09/23/19 06:05 Chloride 98 mmol/L (98-107) 09/23/19 06:05 Carbon Dioxide 29.1 mmol/L (21.0-32.0) 09/23/19 06:05 Anion Gap 9.9 mmol/L (3-11) 09/23/19 06:05 BUN 12 mg/dL (7-18) 09/23/19 06:05 Creatinine 0.84 mg/dL (0.70-1.30) 09/23/19 06:05 Estimated GFR/1.73 m2 >= 60.00 (mL/min/1.73m2) 09/23/19 06:05 Glucose 114 mg/dL (74-106) H 09/23/19 06:05 Calcium 8.8 mg/dL (8.5-10.1) 09/23/19 06:05 Magnesium 1.6 mg/dL (1.8-2.4) L 09/23/19 06:05 Total Bilirubin 1.0 mg/dL (0.2-1.0) 09/21/19 18:25 AST 66 U/L (15-37) H 09/21/19 18:25 ALT 88 U/L (16-63) H 09/21/19 18:25 Alkaline Phosphatase 93 U/L (46-116) 09/21/19 18:25 Troponin I < 0.05 ng/Ml (<0.06) 09/22/19 08:00 Total Protein 8.7 g/dL (6.4-8.2) H 09/21/19 18:25 Albumin 4.1 g/dL (3.4-5.0) 09/21/19 18:25 Triglycerides 61 mg/dL (<150) 09/23/19 06:05 Total Cholesterol 167 mg/dL (<200) 09/23/19 06:05 LDL Cholesterol, Calc 69 mg/dL 09/23/19 06:05 HDL Cholesterol 86 mg/dL (40-60) 09/23/19 06:05 Urine Color Leeann (Yellow) 09/22/19 10:00 Urine Clarity Clear (Clear) 09/22/19 10:00 Urine pH 7.0 (5-8) 09/22/19 10:00 Ur Specific [employer] 1.020 (1.005-1.025) 09/22/19 10:00 Urine Protein 100 mg/dL (Negative) H 09/22/19 10:00 Urine Ketones Negative mg/dL (Negative) 09/22/19 10:00 Urine Blood Small (Negative) H 09/22/19 10:00 Urine Nitrite Negative (Negative) 09/22/19 10:00 Urine Bilirubin Negative (Negative) 09/22/19 10:00 Urine Urobilinogen 1.0 EU/dL (Up TO 0.2) H 09/22/19 10:00 Ur Leukocyte Esterase Negative (Negative) 09/22/19 10:00 Urine RBC 20-50 HPF (0-2) H 09/22/19 10:00 Urine WBC 5-10 HPF (0-5) 09/22/19 10:00 Ur Epithelial Cells Rare HPF (Negative) 09/22/19 10:00 Urine Crystals Negative HPF (Negative) 09/22/19 10:00 Urine Bacteria Rare HPF (Negative) 09/22/19 10:00 Urine Casts Negative LPF (Negative) 09/22/19 10:00 Urine Mucus Trace (Negative) 09/22/19 10:00 Ur Culture Indicated? Yes 09/22/19 10:00 Urine Glucose Negative mg/dL (Negative) 09/22/19 10:00 Urine Opiates Screen Negative (Negative) 09/22/19 10:00 Urine Methadone Screen Negative (Negative) 09/22/19 10:00 Ur Barbiturates Screen Negative (Negative) 09/22/19 10:00 Ur Tricyclics Screen Negative (Negative) 09/22/19 10:00 Ur Amphetamines Screen Negative (Negative) 09/22/19 10:00 U Benzodiazepines Scrn Negative (Negative) 09/22/19 10:00 Urine Cocaine Screen Negative (Negative) 09/22/19 10:00 Ur THC Screen Negative (Negative) 09/22/19 10:00
[2019-09-23] MEDS: Magnesium Chloride 64 MG TABCR PO ×2 (09:15→20:04)
[2019-09-23] MEDS: cloNIDine 0.1 MG TAB PO ×2 (09:15→20:01)
[2019-09-23] MEDS: Lisinopril 20 MG TAB PO (09:15)
[2019-09-23] MEDS: Labetalol 100 MG TAB 200 MG PO ×2 (09:15→20:02)
[2019-09-23] MEDS: Amoxicillin 875/Clav. 125 TAB PO ×2 (09:16→20:04)
[2019-09-23] MEDS: Multivitamin w/Minerals TAB 1 TAB PO (09:16)
[2019-09-23] MEDS: Thiamine 100 MG TAB PO (09:16)
[2019-09-23] MEDS: Nicotine 7 MG/24 HR PATCH TD (09:16)
[2019-09-23] MEDS: Potassium Chloride 20 MEQ TABCR 40 MEQ PO ×3 (09:16→20:01)
[2019-09-23] MEDS: amLODIPine 5 MG TAB PO (09:16)
[2019-09-23] MEDS: Budesonide/Formoterol 160/4.5 6 GM 60 PUFF INH IH ×2 (09:30→20:05)
[2019-09-23] MEDS: DOXYCYCLINE 100 MG in Normal Saline 100 ML IVPB ×2 (10:03→22:13)
[2019-09-23] MEDS: MAGNESIUM SULFATE 4 GM/100 ML BAG IVPB (10:03)
--- NOTE | 2019-09-23 11:00 | PHARADMIT ---
Addendum entered by Jeffrey Brewster III 09/24/19 15:09: Pharmacy Note Subjective BP increased throughout the night and stator winder. restarted Nicardipine drip currently running at (2.5MG/hr (25mL/hr). consulted regarding nose bleed,BP control imperative. Rhino rocket to be pulled tomorrow. Objective BP-141/75 VS-OK K+3.4,Mag-1.5 (boluses ordered) SCr-0.71 H&H-OK Assessment Norvasc increased 5mg po BID Lisinopril to 40mg daily. Labetaolol 200mg BID and Spironolactone being trialled. Lopressor IV available prn. Plan Send up Nicardipine kits each day, Original Note: Admission Pharmacy Clinical Review HYPERTENSIVE URGENCY, EPISTASIS Code Status CIWA SCORE Full Code score- 4 Current Weight Wgt-80 kg Renally Cleared and Narrow Therapeutic Index Meds CrCl~96mL/min Meds-OK QTc Value / Action Taken NONE BP Control, Fever BP- 1555/76 Tmax- 37.2C Electrolytes reviewed Na- 137 K+2.9 Mag-1.6 DVT Prophylaxis TEDs, SCDs (Nose bleed) Opiate Usage / Scheduled Bowel Regimen Ordered No No Plt/SCr for Heparin / Enoxaparin Plts-218 SCr-0.84 INR for Warfarin inr-1.1 H/H stable, WBC/Bands H&H- 13.0/37.7 WBC-5.52 Antibiotic appropriateness Doxycycline-IV, Augmentin Cultures and Sensitivities Urine-Pending, Sputum-mixed ?? Surgical ABX d/c within 24 hr NA DM control / Insulin Dosing BG-114 Heart Failure (Check EF%) (FREDDIE's, B-Block, Diuretics) Norvasc, Clonidine, Labetaolol, Lisinopril, Nicardipine drip, Lopressor IV prn, IV to PO Switch No Home Meds Reviewed Yes Home Meds Not Ordered Advair (Subst- Symbicort) Comments Troponin-neg LFTs-up
[2019-09-23] MEDS: Benzonatate 100 MG CAP PO ×2 (14:37→20:03)
--- NOTE | 2019-09-23 18:08 | PDOC.CMPRO ---
- If Service Date Differs Date of service: 09/23/19 Time of Service: 18:09 Care Management Progress Note S/O: Jaylon remains an ICU patient with the need for monitoring and mediation adjustment related to HTN. A: Nick is a 59 year old male admitted with HTN crisis and epitaxis. P: Nick remains in the ICU for HTN crisis, medications continue to be adjusted. He will be discharged back to the correctional facility at time of discharge, with correctional facility staff coordinated by their staff.
[2019-09-24] VITALS (69 sets, daily range): BP systolic 76–192; BP diastolic 22–126; PULSE 60–88; RESP 1–28; TEMP 36–37.3; O2SAT 94–99
[2019-09-24] MEDS: Metoprolol 5 MG/5 ML VIAL IVP (04:15)
[2019-09-24 07:03] LABS: HCT 34.9 % (40.0-50.0); HGB 12.1 g/dL (13.5-17.5)
[2019-09-24 07:14] LABS: Anion Gap 9.7 mmol/L (3-11); BUN 10 mg/dL (7-18); CO2 27.3 mmol/L (21.0-32.0); CREATININE 0.71 mg/dL (0.70-1.30); Calcium 8.1 mg/dL (8.5-10.1); Chloride 102 mmol/L (98-107); Glucose 114 mg/dL (74-106); Magnesium 1.5 mg/dL (1.8-2.4); Potassium 3.4 mmol/L (3.5-5.1); Sodium 139 mmol/L (136-145)
[2019-09-24] MEDS: Nicotine 7 MG/24 HR PATCH TD (08:03)
[2019-09-24] MEDS: cloNIDine 0.1 MG TAB PO ×2 (08:04→20:10)
[2019-09-24] MEDS: Multivitamin w/Minerals TAB 1 TAB PO (08:04)
[2019-09-24] MEDS: amLODIPine 5 MG TAB PO ×2 (08:04→20:10)
[2019-09-24] MEDS: Benzonatate 100 MG CAP PO ×3 (08:04→20:09)
[2019-09-24] MEDS: Amoxicillin 875/Clav. 125 TAB PO ×2 (08:04→20:09)
[2019-09-24] MEDS: Lisinopril 20 MG TAB PO ×2 (08:04→10:26)
[2019-09-24] MEDS: Magnesium Chloride 64 MG TABCR PO ×2 (08:04→20:09)
[2019-09-24] MEDS: Labetalol 100 MG TAB 200 MG PO ×2 (08:04→20:10)
[2019-09-24] MEDS: Thiamine 100 MG TAB PO (08:04)
[2019-09-24] MEDS: Acetaminophen 325 MG TAB 650 MG PO ×2 (08:07→14:28)
[2019-09-24] MEDS: Budesonide/Formoterol 160/4.5 6 GM 60 PUFF INH IH ×2 (08:08→20:10)
[2019-09-24] MEDS: niCARdipine 25 MG in Normal Saline 240 ML IV (08:11)
--- NOTE | 2019-09-24 08:44 | PGE_ITS ---
Date of Service Date of service: 09/24/19 Time of Service: 12:43 Assessment and Plan Assessment and plan (1) Hypertensive urgency: Status: Acute Assessment and plan: Still rather labile and required re-introduction of cardene gtt this morning. We have now increased norvasc to 5 mg PO BID and lisinopril to 40 mg PO Daily. Continue labetalol 200 mg PO BID, clonidine. Trial addition of aldactone if this recurs. Continue prn metoprolol. Keep in ICU for the next few hours. (2) Epistaxis: Status: Acute Assessment and plan: Patient perceives that he is still bleeding, despite having the rhino rocket in place x 3 days. Continue augmentin. We are going to try to arrange an ENT consult for him today. Continue to abstain from chemical DVT ppx. Control BP's. (3) Acute exacerbation of chronic obstructive pulmonary disease (COPD): Status: Acute Assessment and plan: Mild, improved. There is no evidence of pneumonia or mass on CT (CXR read was not definitive). Continue symbicort, nebs prn, doxycycline, augmentin, antitussives. No role for steroids at this time. (4) Hypokalemia: Status: Acute Assessment and plan: Replete; recheck in am. Might be helped by addition of potassium-sparing diuretics. (5) Hypomagnesemia: Status: Acute Assessment and plan: Replete, recheck in am (6) Discharge planning issues: Status: Acute Assessment and plan: Full code. Keep in ICU for now. (7) DVT prophylaxis: Status: Acute Assessment and plan: TEDs + SCD's. Avoid chemical dvt ppx in setting of acute bleeding. Subjective Subjective Interval history since last seen: Off of cardene gtt at this time, but did go up to 200/100 this am, at which point the drip was restarted. Cardene gtt was d/c'ed at 9:30. got IV lopressor at 3 am. Has a headache. Got dizzy this morning when BP dropped to 120/70's. This is now better. Rhonchi this am resolved with updrafts No SOB. O2 sats >92%. While his trumpet is not dripping, he feels that he still has some nasal bleeding - he feels it in his throat. Exam Narrative Exam Narrative: General: Pleasant middle-aged male, sitting up at the edge of the bed, no leaking from nasal trumpet L nostril. HEENT: EOMI, MMM Heart: RRR, no m/r/g Lungs: Diminished breath sounds B Abdomen: soft, nontender, nondistended. Extremities: no e/c/c BLE's Objective Objective Clinical Data: Abnormal lab results 09/24/19 09/24/19 Range/Units 06:25 06:25 Hgb 12.1 L (13.5-17.5) g/dL Hct 34.9 L (40.0-50.0) % Potassium 3.4 L (3.5-5.1) mmol/L Glucose 114 H (74-106) mg/dL Calcium 8.1 L (8.5-10.1) mg/dL Magnesium 1.5 L (1.8-2.4) mg/dL Vital Signs Temperature 37.3 C 09/24/19 08:07 Temperature Source Temporal Artery Scan 09/24/19 04:25 Pulse 66 09/24/19 06:00 Pulse 66 09/24/19 07:00 Respiratory Rate 12 09/24/19 07:00 Respiratory Effort Non-Labored 09/24/19 04:25 Respiratory Depth Normal 09/24/19 04:25 Respiratory Pattern Normal 09/23/19 15:00 Blood Pressure 175/100 H 09/24/19 06:00 Blood Pressure Mean 118 09/24/19 06:00 Blood Pressure Position Supine 09/24/19 04:25 Pulse Oximetry 97 09/24/19 07:00 Oxygen Delivery Method Room Air 09/24/19 04:25 Oxygen Flow Rate 0 09/24/19 04:25 Pain Level 8 09/24/19 08:07 Comment 09/23/19 20:32 Intake & Output 09/23/19 09/23/19 09/24/19 11:59 23:59 11:59 Intake Total 532.500 / 1437.500 905 / 1437.500 340 / 340 Output Total 1450 / 2675 1225 / 2675 300 / 300 Balance -917.500 / -1237.500 -320 / -1237.500 40 / 40 Weight 72.5 kg Intake: IV 292.500 / 477.500 185 / 477.500 100 / 100 Oral 240 / 960 720 / 960 240 / 240 Output: Urine 1450 / 2675 1225 / 2675 300 / 300 Other: Urine Color Light Leeann Light Leeann Light Leeann Urine Appearance Clear Clear Clear Urine Odor None None None Comment voiding in urinal. urine clear dark leeann Stool Occult Blood Negative Negative Stool Size Moderate Stool Characteristics Soft Soft Formed Brown Voiding Methods Urinal Urinal Urinal Laboratory Results WBC 5.52 k/cumm (4.4-10.8) 09/23/19 06:05 RBC 4.00 m/cumm (4.50-6.00) L 09/23/19 06:05 Hgb 12.1 g/dL (13.5-17.5) L 09/24/19 06:25 Hct 34.9 % (40.0-50.0) L 09/24/19 06:25 MCV 94.3 fL (80-95) 09/23/19 06:05 MCH 32.5 pg (27.0-33.0) 09/23/19 06:05 MCHC 34.5 g/dL (32.0-36.0) 09/23/19 06:05 RDW 12.1 % (11.8-14.1) 09/23/19 06:05 Plt Count 218 x1000/uL (130-400) 09/23/19 06:05 MPV 10.2 fL (8.0-11.0) 09/23/19 06:05 Immature Gran % 0.2 % 09/22/19 08:00 Neutrophils % 65.4 09/22/19 08:00 Lymphocytes % 18.7 09/22/19 08:00 Monocytes % 11.5 09/22/19 08:00 Eosinophils % 2.8 09/22/19 08:00 Basophils % 1.4 09/22/19 08:00 Absolute Neutrophils 3.74 k/cumm (1.2-6.7) 09/22/19 08:00 Absolute Lymphocytes 1.07 k/cumm (1.2-3.4) L 09/22/19 08:00 Absolute Monocytes 0.66 k/cumm (0.11-0.7) 09/22/19 08:00 Absolute Eosinophils 0.16 k/cumm (0.0-0.7) 09/22/19 08:00 Absolute Basophils 0.08 k/cumm (0.0-0.2) 09/22/19 08:00 PT 11.0 sec (9.3-11.0) 09/21/19 18:25 INR 1.1 (0.9-1.1) 09/21/19 18:25 Sodium 139 mmol/L (136-145) 09/24/19 06:25 Potassium 3.4 mmol/L (3.5-5.1) L 09/24/19 06:25 Chloride 102 mmol/L (98-107) 09/24/19 06:25 Carbon Dioxide 27.3 mmol/L (21.0-32.0) 09/24/19 06:25 Anion Gap 9.7 mmol/L (3-11) 09/24/19 06:25 BUN 10 mg/dL (7-18) 09/24/19 06:25 Creatinine 0.71 mg/dL (0.70-1.30) 09/24/19 06:25 Estimated GFR/1.73 m2 >= 60.00 (mL/min/1.73m2) 09/24/19 06:25 Glucose 114 mg/dL (74-106) H 09/24/19 06:25 Calcium 8.1 mg/dL (8.5-10.1) L 09/24/19 06:25 Magnesium 1.5 mg/dL (1.8-2.4) L 09/24/19 06:25 Total Bilirubin 1.0 mg/dL (0.2-1.0) 09/21/19 18:25 AST 66 U/L (15-37) H 09/21/19 18:25 ALT 88 U/L (16-63) H 09/21/19 18:25 Alkaline Phosphatase 93 U/L (46-116) 09/21/19 18:25 Troponin I < 0.05 ng/Ml (<0.06) 09/22/19 08:00 Total Protein 8.7 g/dL (6.4-8.2) H 09/21/19 18:25 Albumin 4.1 g/dL (3.4-5.0) 09/21/19 18:25 Triglycerides 61 mg/dL (<150) 09/23/19 06:05 Total Cholesterol 167 mg/dL (<200) 09/23/19 06:05 LDL Cholesterol, Calc 69 mg/dL 09/23/19 06:05 HDL Cholesterol 86 mg/dL (40-60) 09/23/19 06:05 Urine Color Eleann (Yellow) 09/22/19 10:00 Urine Clarity Clear (Clear) 09/22/19 10:00 Urine pH 7.0 (5-8) 09/22/19 10:00 Ur Specific [place] 1.020 (1.005-1.025) 09/22/19 10:00 Urine Protein 100 mg/dL (Negative) H 09/22/19 10:00 Urine Ketones Negative mg/dL (Negative) 09/22/19 10:00 Urine Blood Small (Negative) H 09/22/19 10:00 Urine Nitrite Negative (Negative) 09/22/19 10:00 Urine Bilirubin Negative (Negative) 09/22/19 10:00 Urine Urobilinogen 1.0 EU/dL (Up TO 0.2) H 09/22/19 10:00 Ur Leukocyte Esterase Negative (Negative) 09/22/19 10:00 Urine RBC 20-50 HPF (0-2) H 09/22/19 10:00 Urine WBC 5-10 HPF (0-5) 09/22/19 10:00 Ur Epithelial Cells Rare HPF (Negative) 09/22/19 10:00 Urine Crystals Negative HPF (Negative) 09/22/19 10:00 Urine Bacteria Rare HPF (Negative) 09/22/19 10:00 Urine Casts Negative LPF (Negative) 09/22/19 10:00 Urine Mucus Trace (Negative) 09/22/19 10:00 Ur Culture Indicated? Yes 09/22/19 10:00 Urine Glucose Negative mg/dL (Negative) 09/22/19 10:00 Urine Opiates Screen Negative (Negative) 09/22/19 10:00 Urine Methadone Screen Negative (Negative) 09/22/19 10:00 Ur Barbiturates Screen Negative (Negative) 09/22/19 10:00 Ur Tricyclics Screen Negative (Negative) 09/22/19 10:00 Ur Amphetamines Screen Negative (Negative) 09/22/19 10:00 U Benzodiazepines Scrn Negative (Negative) 09/22/19 10:00 Urine Cocaine Screen Negative (Negative) 09/22/19 10:00 Ur THC Screen Negative (Negative) 09/22/19 10:00
[2019-09-24] MEDS: Potassium Chloride 20 MEQ TABCR 40 MEQ PO (09:08)
[2019-09-24] MEDS: MAGNESIUM SULFATE 4 GM/100 ML BAG IVPB (09:10)
[2019-09-24] MEDS: Albuterol 2.5 MG/3 ML INH SOLN VIAL UPD ×2 (09:11→16:40)
[2019-09-24] MEDS: DOXYCYCLINE 100 MG in Normal Saline 100 ML IVPB ×2 (10:26→21:58)
[2019-09-24] MEDS: Normal Saline Flush 10 ML SYR IVP (10:27)
[2019-09-24 12:37] LABS: HCT 37.6 % (40.0-50.0); HGB 12.7 g/dL (13.5-17.5)
--- NOTE | 2019-09-24 13:15 | CMPROGNOTE_ITS ---
- If Service Date Differs Date of service: 09/24/19 Time of Service: 13:15 Care Management Progress Note S/O: CM met Jaylon in his room in the ICU, medications continue to be adjusted to treat the hypertension. He is concerned about next steps when he leaves the hospital and he is unsure of where he will be located. He was arrested but has not been arraigned yet due to hospitalization. Prior to arriving at the correction facility he was homeless in [place] and living in his van. Anticipate he will be discharged to corrections however he will need ongoing treatment and primary care once he is released. CM will contact correction facility and speak with director of primary care to review plan and request coordination at time of release with community services. A: Nick is a 59 year old male admitted with HTN crisis and epitaxis. P: Nick remains in the ICU for HTN crisis, medications continue to be adjusted. He will be discharged back to the correctional facility at time of discharge, with correctional facility staff coordinated by their staff.
[2019-09-25] VITALS (61 sets, daily range): BP systolic 141–192; BP diastolic 85–112; PULSE 59–78; RESP 5–30; TEMP 36.1–36.8; O2SAT 96–100
[2019-09-25 07:07] LABS: Abs Immature Grans 0.01 k/cumm (0.0-0.09); Absolute Basophil Count 0.11 k/cumm (0.0-0.2); Absolute Eosinophil Count 0.43 k/cumm (0.0-0.7); Absolute Lymphocyte Count 0.85 k/cumm (1.2-3.4); Absolute Monocyte Count 0.88 k/cumm (0.11-0.7); Basophils % 1.7; Eosinophils % 6.7; HCT 37.6 % (40.0-50.0); HGB 12.8 g/dL (13.5-17.5); Immature Grans % 0.2 %; Lymphocytes % 13.3; Mean Corpuscular Hemoglobin 32.6 pg (27.0-33.0); Mean Corpuscular Volume 95.7 fL (80-95); Mean Platelet Volume 10.3 fL (8.0-11.0); Monocytes % 13.8; Neutrophils % 64.3; Platelet Count 228 x1000/uL (130-400); RBC 3.93 m/cumm (4.50-6.00); RBC Distribution Width 12.1 % (11.8-14.1); White Blood Cell Count 6.38 k/cumm (4.4-10.8)
[2019-09-25 07:11] LABS: Anion Gap 10.7 mmol/L (3-11); BUN 12 mg/dL (7-18); CO2 27.3 mmol/L (21.0-32.0); CREATININE 0.68 mg/dL (0.70-1.30); Chloride 100 mmol/L (98-107); Glucose 101 mg/dL (74-106); Magnesium 1.5 mg/dL (1.8-2.4); Potassium 3.2 mmol/L (3.5-5.1); Sodium 138 mmol/L (136-145)
--- NOTE | 2019-09-25 08:26 | PGE_ITS ---
Date of Service Date of service: 09/25/19 Time of Service: 08:26 Assessment and Plan Assessment and plan (1) Hypertensive urgency: Status: Acute Assessment and plan: Off of cardizem drip, but BP's are inching up even with introduction of spironolactone this morning. Increase clonidine and consider clonidine patch. Continue norvasc to 5 mg PO BID and lisinopril to 40 mg PO Daily. Continue labetalol 200 mg PO BID. Add PO hydralazine. Continue prn metoprolol. Likely ok to transfer out of ICU, but I would like to remove the rhino rocket first. (2) Epistaxis: Status: Acute Assessment and plan: In fact, stopped. Once BP is better controlled (hopefully later today), will remove rhinorocket. Instructions from Dr Hooker: Can't blow nose for 2 weeks. Sneeze through mouth. Avoid liftin >2 lbs. Keep tight blood pressure control. If bleeding significant post removal of rhino rocket, then would potentially require transfer. Continue augmentin. Continue to abstain from chemical DVT ppx. Control BP's. (3) Acute exacerbation of chronic obstructive pulmonary disease (COPD): Status: Acute Assessment and plan: Sounds worse today. Repeating CXR. Consider steroids, though I would really like to avoid this given his BP. Continue symbicort, nebs prn, doxycycline, augmentin, antitussives. (4) Hypokalemia: Status: Acute Assessment and plan: Replete; recheck in am. Might be helped by addition of potassium-sparing diuretics. (5) Hypomagnesemia: Status: Acute Assessment and plan: Replete, recheck in am (6) Discharge planning issues: Status: Acute Assessment and plan: Full code. Keep in ICU for now. (7) DVT prophylaxis: Status: Acute Assessment and plan: TEDs + SCD's. Avoid chemical dvt ppx in setting of acute bleeding. Subjective Subjective Interval history since last seen: States felt dizzy earlier today; denies chest pain, feels short of breath while eating, has been wheezing, denies n/v. Off of cardene gtt since yesterday. BP Still in 160's after morning meds. No bleeding. Exam Narrative Exam Narrative: General: Pleasant middle-aged male, sitting up at the edge of the bed, no leaking from nasal trumpet L nostril. HEENT: EOMI, MMM Heart: RRR, no m/r/g Lungs: wheezing on expiration B Abdomen: soft, nontender, nondistended. Extremities: no e/c/c BLE's Objective Objective Clinical Data: Abnormal lab results 09/24/19 09/25/19 09/25/19 Range/Units 12:20 06:30 06:30 RBC 3.93 L (4.50-6.00) m/cumm Hgb 12.7 L 12.8 L (13.5-17.5) g/dL Hct 37.6 L 37.6 L (40.0-50.0) % MCV 95.7 H (80-95) fL Absolute Lymphocytes 0.85 L (1.2-3.4) k/cumm Absolute Monocytes 0.88 H (0.11-0.7) k/cumm Potassium 3.2 L (3.5-5.1) mmol/L Creatinine 0.68 L (0.70-1.30) mg/dL Magnesium 1.5 L (1.8-2.4) mg/dL Vital Signs Temperature 36.3 C L 09/25/19 04:10 Temperature Source Temporal Artery Scan 09/25/19 04:10 Pulse 70 09/25/19 06:12 Pulse 73 09/25/19 06:12 Respiratory Rate 20 09/25/19 06:01 Respiratory Effort Non-Labored 09/25/19 04:10 Respiratory Depth Normal 09/25/19 04:10 Respiratory Pattern Normal 09/25/19 04:10 Blood Pressure 171/88 H 09/25/19 06:12 Blood Pressure Mean 107 09/25/19 06:12 Blood Pressure Position Supine 09/25/19 04:10 Pulse Oximetry 97 09/25/19 04:10 Oxygen Delivery Method Room Air 09/25/19 04:10 Oxygen Flow Rate 0 09/25/19 04:10 Pain Level 0 09/25/19 04:10 Comment 09/23/19 20:32 Intake & Output 09/24/19 09/24/19 09/25/19 11:59 23:59 11:59 Intake Total 460.417 / 2706.367 3632 / 1500.417 340 / 340 Output Total 300 / 1300 1000 / 1300 1950 / 1950 Balance 160.417 / 200.417 40 / 200.417 -1610 / -1610 Weight 72.5 kg 66.3 kg Intake: IV 220.417 / 220.417 100 / 100 Oral 240 / 1280 1040 / 1280 240 / 240 Output: Urine 300 / 1300 1000 / 1300 1949 Other: Urine Color Light Yumiko Yellow Light Yumiko Urine Appearance Clear Clear Clear Urine Odor None None None Voiding Methods Urinal Urinal Urinal Laboratory Results WBC 6.38 k/cumm (4.4-10.8) 09/25/19 06:30 RBC 3.93 m/cumm (4.50-6.00) L 09/25/19 06:30 Hgb 12.8 g/dL (13.5-17.5) L 09/25/19 06:30 Hct 37.6 % (40.0-50.0) L 09/25/19 06:30 MCV 95.7 fL (80-95) H 09/25/19 06:30 MCH 32.6 pg (27.0-33.0) 09/25/19 06:30 MCHC 34.0 g/dL (32.0-36.0) 09/25/19 06:30 RDW 12.1 % (11.8-14.1) 09/25/19 06:30 Plt Count 228 x1000/uL (130-400) 09/25/19 06:30 MPV 10.3 fL (8.0-11.0) 09/25/19 06:30 Immature Gran % 0.2 % 09/25/19 06:30 Neutrophils % 64.3 09/25/19 06:30 Lymphocytes % 13.3 09/25/19 06:30 Monocytes % 13.8 09/25/19 06:30 Eosinophils % 6.7 09/25/19 06:30 Basophils % 1.7 09/25/19 06:30 Absolute Neutrophils 4.10 k/cumm (1.2-6.7) 09/25/19 06:30 Absolute Lymphocytes 0.85 k/cumm (1.2-3.4) L 09/25/19 06:30 Absolute Monocytes 0.88 k/cumm (0.11-0.7) H 09/25/19 06:30 Absolute Eosinophils 0.43 k/cumm (0.0-0.7) 09/25/19 06:30 Absolute Basophils 0.11 k/cumm (0.0-0.2) 09/25/19 06:30 PT 11.0 sec (9.3-11.0) 09/21/19 18:25 INR 1.1 (0.9-1.1) 09/21/19 18:25 Sodium 138 mmol/L (136-145) 09/25/19 06:30 Potassium 3.2 mmol/L (3.5-5.1) L 09/25/19 06:30 Chloride 100 mmol/L (98-107) 09/25/19 06:30 Carbon Dioxide 27.3 mmol/L (21.0-32.0) 09/25/19 06:30 Anion Gap 10.7 mmol/L (3-11) 09/25/19 06:30 BUN 12 mg/dL (7-18) 09/25/19 06:30 Creatinine 0.68 mg/dL (0.70-1.30) L 09/25/19 06:30 Estimated GFR/1.73 m2 >= 60.00 (mL/min/1.73m2) 09/25/19 06:30 Glucose 101 mg/dL (74-106) 09/25/19 06:30 Calcium 9.0 mg/dL (8.5-10.1) 09/25/19 06:30 Magnesium 1.5 mg/dL (1.8-2.4) L 09/25/19 06:30 Total Bilirubin 1.0 mg/dL (0.2-1.0) 09/21/19 18:25 AST 66 U/L (15-37) H 09/21/19 18:25 ALT 88 U/L (16-63) H 09/21/19 18:25 Alkaline Phosphatase 93 U/L (46-116) 09/21/19 18:25 Troponin I < 0.05 ng/Ml (<0.06) 09/22/19 08:00 Total Protein 8.7 g/dL (6.4-8.2) H 09/21/19 18:25 Albumin 4.1 g/dL (3.4-5.0) 09/21/19 18:25 Triglycerides 61 mg/dL (<150) 09/23/19 06:05 Total Cholesterol 167 mg/dL (<200) 09/23/19 06:05 LDL Cholesterol, Calc 69 mg/dL 09/23/19 06:05 HDL Cholesterol 86 mg/dL (40-60) 09/23/19 06:05 Urine Color Yumiko (Yellow) 09/22/19 10:00 Urine Clarity Clear (Clear) 09/22/19 10:00 Urine pH 7.0 (5-8) 09/22/19 10:00 Ur Specific [place] 1.020 (1.005-1.025) 09/22/19 10:00 Urine Protein 100 mg/dL (Negative) H 09/22/19 10:00 Urine Ketones Negative mg/dL (Negative) 09/22/19 10:00 Urine Blood Small (Negative) H 09/22/19 10:00 Urine Nitrite Negative (Negative) 09/22/19 10:00 Urine Bilirubin Negative (Negative) 09/22/19 10:00 Urine Urobilinogen 1.0 EU/dL (Up TO 0.2) H 09/22/19 10:00 Ur Leukocyte Esterase Negative (Negative) 09/22/19 10:00 Urine RBC 20-50 HPF (0-2) H 09/22/19 10:00 Urine WBC 5-10 HPF (0-5) 09/22/19 10:00 Ur Epithelial Cells Rare HPF (Negative) 09/22/19 10:00 Urine Crystals Negative HPF (Negative) 09/22/19 10:00 Urine Bacteria Rare HPF (Negative) 09/22/19 10:00 Urine Casts Negative LPF (Negative) 09/22/19 10:00 Urine Mucus Trace (Negative) 09/22/19 10:00 Ur Culture Indicated? Yes 09/22/19 10:00 Urine Glucose Negative mg/dL (Negative) 09/22/19 10:00 Urine Opiates Screen Negative (Negative) 09/22/19 10:00 Urine Methadone Screen Negative (Negative) 09/22/19 10:00 Ur Barbiturates Screen Negative (Negative) 09/22/19 10:00 Ur Tricyclics Screen Negative (Negative) 09/22/19 10:00 Ur Amphetamines Screen Negative (Negative) 09/22/19 10:00 U Benzodiazepines Scrn Negative (Negative) 09/22/19 10:00 Urine Cocaine Screen Negative (Negative) 09/22/19 10:00 Ur THC Screen Negative (Negative) 09/22/19 10:00
[2019-09-25] MEDS: Multivitamin w/Minerals TAB 1 TAB PO (08:39)
[2019-09-25] MEDS: Amoxicillin 875/Clav. 125 TAB PO ×2 (08:39→20:09)
[2019-09-25] MEDS: cloNIDine 0.1 MG TAB PO ×3 (08:40→20:09)
[2019-09-25] MEDS: Lisinopril 20 MG TAB 40 MG PO (08:40)
[2019-09-25] MEDS: Labetalol 100 MG TAB 200 MG PO ×2 (08:40→20:09)
[2019-09-25] MEDS: Benzonatate 100 MG CAP PO ×3 (08:41→20:10)
[2019-09-25] MEDS: amLODIPine 5 MG TAB PO ×2 (08:46→20:09)
[2019-09-25] MEDS: Thiamine 100 MG TAB PO (08:47)
[2019-09-25] MEDS: Nicotine 7 MG/24 HR PATCH TD (08:47)
[2019-09-25] MEDS: MAGNESIUM SULFATE 4 GM/100 ML BAG IVPB (08:59)
[2019-09-25] MEDS: Magnesium Chloride 64 MG TABCR 128 MG PO ×2 (09:28→20:09)
[2019-09-25] MEDS: Potassium Chloride 20 MEQ TABCR 40 MEQ PO (09:28)
[2019-09-25] MEDS: Spironolactone 25 MG TAB PO ×2 (09:29→20:10)
[2019-09-25] MEDS: Budesonide/Formoterol 160/4.5 6 GM 60 PUFF INH IH ×2 (09:47→20:08)
--- NOTE | 2019-09-25 09:51 | W.NUTCONSULT ---
Date of service: 09/25/19 Time of Service: 09:51 Nutritional Consult ASSESSMENT: 59 year old male admitted with HTN. Following Heart Healthy meal plan with excellent intake. BMI wnl. Not considered at nutritional risk. Time Spent in Nutritional Counseling and Treatment: 0 time spent face to face
[2019-09-25] MEDS: DOXYCYCLINE 100 MG in Normal Saline 100 ML IVPB ×2 (09:59→22:17)
[2019-09-25] MEDS: Albuterol/Ipratropium 3 ML UPD VIAL UPD ×3 (10:39→23:33)
--- NOTE | 2019-09-25 12:18 | PDOC.CMPRO ---
- If Service Date Differs Date of service: 09/25/19 Time of Service: 12:18 Care Management Progress Note S/O: Nick remains in the ICU, his status will change to medical surgical level of care today. Anticipate he will be discharged later today or over the weekend. CM to continue to follow disposition. A: Nick is a 59 year old male admitted with HTN crisis and epitaxis. P: Nick remains in the ICU for HTN crisis, medications continue to be adjusted. He will be discharged back to the correctional facility at time of discharge, with correctional facility staff coordinated by their staff.
--- NOTE | 2019-09-25 13:55 | DI.RAD_ITS ---
EXAM: XR CHEST 2V PA LATERAL CLINICAL HISTORY: worsening wheezing TECHNIQUE: COMPARISON: XR CHEST 2V PA LATERAL from 09/21/2019 FINDINGS: Heart is not enlarged. Previously noted nipple shadow again seen on the left. Lungs are clear. No pleural effusion. IMPRESSION: Negative examination of the chest.
[2019-09-25] MEDS: hydrALAZINE 10 MG TAB PO ×2 (14:07→20:09)
[2019-09-25] MEDS: Normal Saline Flush 10 ML SYR IVP (20:08)
[2019-09-25] MEDS: Acetaminophen 325 MG TAB 650 MG PO (20:22)
[2019-09-26] VITALS (21 sets, daily range): BP systolic 140–195; BP diastolic 74–111; PULSE 55–79; RESP 1–30; TEMP 36.1–36.3; O2SAT 97–100
[2019-09-26] MEDS: Acetaminophen 325 MG TAB 650 MG PO ×2 (03:15→13:04)
[2019-09-26] MEDS: Albuterol/Ipratropium 3 ML UPD VIAL UPD ×2 (06:16→06:36)
[2019-09-26] MEDS: Normal Saline Flush 10 ML SYR IVP (06:50)
[2019-09-26 07:01] LABS: HCT 36.7 % (40.0-50.0); HGB 12.5 g/dL (13.5-17.5)
[2019-09-26 07:16] LABS: BUN 16 mg/dL (7-18); Calcium 8.6 mg/dL (8.5-10.1); Chloride 102 mmol/L (98-107); Glucose 105 mg/dL (74-106); Magnesium 1.8 mg/dL (1.8-2.4); Potassium 3.8 mmol/L (3.5-5.1); Sodium 138 mmol/L (136-145)
[2019-09-26] MEDS: Nicotine 7 MG/24 HR PATCH TD (09:05)
[2019-09-26] MEDS: Spironolactone 25 MG TAB PO ×2 (09:06→10:16)
[2019-09-26] MEDS: hydrALAZINE 10 MG TAB PO (09:06)
[2019-09-26] MEDS: Labetalol 100 MG TAB 200 MG PO (09:06)
[2019-09-26] MEDS: cloNIDine 0.1 MG TAB PO (09:06)
[2019-09-26] MEDS: Thiamine 100 MG TAB PO (09:06)
[2019-09-26] MEDS: Multivitamin w/Minerals TAB 1 TAB PO (09:06)
[2019-09-26] MEDS: amLODIPine 5 MG TAB PO ×2 (09:06→10:16)
[2019-09-26] MEDS: Lisinopril 20 MG TAB 40 MG PO (09:07)
[2019-09-26] MEDS: Amoxicillin 875/Clav. 125 TAB PO (09:07)
[2019-09-26] MEDS: Magnesium Chloride 64 MG TABCR 128 MG PO (09:07)
[2019-09-26] MEDS: Benzonatate 100 MG CAP PO (09:09)
[2019-09-26] MEDS: Budesonide/Formoterol 160/4.5 6 GM 60 PUFF INH IH (09:14)
--- NOTE | 2019-09-26 17:00 | CMDISCH_ITS ---
- If Service Date Differs Date of service: 09/26/19 Time of Service: 17:00 LACE Index Scoring Tool - Questions: Length of Stay (in days): 4 - 6 Acuity (Admit via E.D.?): Yes E.D. Visits: 1 - Answers: Total Score: 8 Risk of Readmission: Low Risk Care Management Discharge Reason for Hospitalization: Hypertension, Epistaxis Discharge Plan: Jaylon will be discharged back to [facility] until he can be arraigned. He will follow up with the facility provider and his discharge plan of care. He was provided with paper prescriptions in case he is released into the community, to enable him to fill his new prescriptions. Patient/Family Education Needs: Discharge plan, limitations, follow up plan, Ask Me Three.
--- NOTE | 2019-10-02 01:47 | DSE_ITS ---
Date of service: 09/26/19 Time of Service: 13:00 DS: Diagnosis Discharge Diagnosis (1) Hypertensive urgency: Status: Acute Asessment and Plan: Patient was admitted to the hospital with hypertensive urgency associated with epistaxis. He required a nicardipine drip to control his blood pressure. Dr. Thao put him on clonidine, lisinopril, labetalol, Norvasc. His epistaxis was controlled with anterior nasal packing using a Rhino Rocket. He was placed on Augmentin to prevent toxic shock syndrome. Nicardipine drip was weaned off and his blood pressure medications were adjusted. Rhino Rocket was removed he had no further epistaxis. Work-up for secondary hypertension was never pursued (2) Epistaxis: Status: Acute Asessment and Plan: As above. Further epistaxis occurs patient should be brought back to the emergency department. There is no further need for Augmentin at this point. (3) Acute exacerbation of chronic obstructive pulmonary disease (COPD): Status: Acute Asessment and Plan: COPD exacerbation was improved with aerosolized bronchodilators and initiation of Symbicort. (4) Hypokalemia: Status: Acute Asessment and Plan: Resolved with oral supplementation. (5) Hypomagnesemia: Status: Acute Asessment and Plan: Resolved with oral and IV supplementation. (6) Discharge planning issues: Status: Acute Asessment and Plan: Patient will return to the correctional institution where the attending physician can monitor his blood pressure adjust his medications and pursue work-up above secondary causes of his hypertension. (7) DVT prophylaxis: Status: Acute Asessment and Plan: No further need for DVT prophylaxis at this point Discharge Plan Disposition [facility] Disposition[facility] Condition: Good Discharge Details Chief Complaint: Epistaxis Clinical Impression: Uncontrolled hypertension, Acute anterior epistaxis Reason For Visit: HYPERTENSIVE URGENCY, EPISTAXIS Admit Date/Time: 09/22/19 11:30 Admit Provider: Sreekanth Treviño Attending Provider: Carlos Padgett Primary Care Provider: FARIBA STOREY ED Provider: Gabriel Santos Hospital Course Hospital Course: 59-year-old incarcerated male with a history of central hypertension who is been off his medications for a number of weeks. Was brought to the emergency department with acute epistaxis. Blood pressure in the emergency department was severely elevated at 240/170. Patient received clonidine 0.1 mg p.o. lisinopril 20 mg p.o. and labetalol 20 mg IV. He had a nasal packing placed in the emergency department and was started on Augmentin 875 mg twice a day. Incidental finding on chest x-ray included 2 lung nodules. One nodule projected over the left sixth rib anteriorly and was felt to possibly be a nipple shadow. There is another nodular opacity over the right sixth rib anter iorly and a vague nodular radiodensity projected over the left lung base. Because of his history of persistent cough and smoking history subsequent CT of the chest was performed. No pulmonary nodules or consolidation were seen but he is found to have centrilobular emphysema. Patient was initially admitted to the intensive care unit for close monitoring and was continued on labetalol lisinopril Norvasc and clonidine. However eventually required a nicardipine drip for hypertensive urgency. The Rhino Rocket nasal packing was maintained and he was kept on Augmentin 875 mg twice a day. He was started on albuterol aerosol treatments on an as-needed basis because of his coughing and wheezing and started on Symbicort for his COPD. On September 23, 2019 the nicardipine drip was discontinued but then overnight his blood pressure went up and he required resumption of the nicardipine drip. This eventually was weaned off and he was started on spironolactone 25 mg daily and this was titrated 25 mg twice daily and his Norvasc was increased to 5 mg twice a day in addition to the labetalol 200 mg twice a day and the clonidine was increased to 0.1 mg p.o. 3 times daily. Lisinopril was kept at 40 mg daily. The Rhino Rocket was discontinued on September 25, 2019 and he was monitored for 1 more day for any recurrent bleeding. On September 26, 2019 blood pressures although not optimal or under markedly better control with systolic pressures running in the 140s and 150s upwards to 170 and diastolic readings in the 80s to 90s. He had no further epistaxis. Work-up for secondary causes of hypertension was entertained but never pursued during this hospitalization. As his blood pressures were reasonably controlled when I assumed his care I have left his current medication regimen intact. I have ordered plasma renin level and aldosterone levels and 24-hour urine for catecholamines to be obtained as an outpatient. We will also recheck a BMP to ensure that his electrolytes are remaining stable on the current course of diuretics and FREDDIE inhibitors. Patient should have close follow-up with a primary care provider to monitor his blood pressure medications and his renal function and electrolytes. His PCP should follow through with his work-up for secondary hypertension. Instructions from Dr Hooker: Can't blow nose for 2 weeks. Sneeze through mouth. Avoid liftin >2 lbs. Keep tight blood pressure control. If bleeding significant post removal of rhino rocket, then would potentially require transfer. Home Meds and New Rx's Prescriptions: New hydralazine 10 mg Tablet 10 mg PO TID Qty: 90 RF: 0 clonidine HCl [Catapres] 0.1 mg Tablet 0.1 mg PO TID Qty: 90 RF: 0 benzonatate 100 mg Capsule 100 mg PO TID PRN (Reason: Cough) Qty: 30 RF: 0 nicotine 7 mg/24 hr Patch 24 Hour 7 mg transdermal DAILY Qty: 30 RF: 0 Therems-M 27-0.4 mg Tablet 1 tab PO DAILY Qty: 30 RF: 0 Symbicort 160-4.5 mcg/actuation Hfa Aerosol Inhaler 2 puff inhalation BID Qty: 1 RF: 0 albuterol sulfate 90 mcg/actuation HFA aerosol inhaler 2 puff IH Q6H PRN (Reason: shortness of breath or wheezing) Qty: 18 RF: 0 amlodipine 10 mg tablet 10 mg PO DAILY Qty: 30 RF: 0 labetalol 200 mg tablet 200 mg PO BID Qty: 60 RF: 0 lisinopril 40 mg tablet 40 mg PO DAILY Qty: 30 RF: 0 spironolactone 50 mg tablet 50 mg PO DAILY Qty: 30 RF: 0 No Action albuterol sulfate 90 mcg/actuation Hfa Aerosol Inhaler 2 puff INHALATION Q4H PRN PRN (Reason: Shortness Of Breath) RF: 0 Advair HFA 230-21 mcg/actuation Hfa Aerosol Inhaler 2 puff INHALATION BID RF: 0 Discharge Instructions Activity:: Activity as Tolerated Equipment/Supplies:: No Equipment Needed Diet:: Normal Diet Discharge Orders Discharge Orders: Discharge Order (Routine); Ordered 09/26/19 Ordered By: Carlos Padgett Other Ambulatory Orders: Aldosterone (Routine) Facility: [facility] - Location: Laboratory Nonpatient Ordered By: Carlos Padgett Basic Metabolic Panel (Routine) Location: None Selected Ordered By: Carlos Padgett Catecholamine Fract,Free 24H U (Routine) Facility: [facility] - Location: Laboratory Nonpatient Ordered By: Carlos Padgett Renin Activity, Plasma (Routine) Facility: [facility] - Location: Laboratory Nonpatient Ordered By: Carlos Padgett Discharge Data Discharge Date/Time-TO BE ENTERED AT DEPARTURE: 09/26/19 14:50 Discharge Comment: Follow-up with Dr. Hooker as needed DS: Summary Status at Discharge Functional status at discharge: independent ambulation Overall status at discharge: patient is back to baseline Mental Status: mental status grossly normal Speech and Movement: speech and movement normal Mood: congruent mood Affect: normal affect Exam Narrative Exam Narrative: Middle-age male in no acute distress. HEENT is unremarkable. There is no further epistaxis. Lungs reveal few scattered end expiratory wheezes Heart is regular without murmur rub or gallop. Psych Mental Status: mental status grossly normal Speech and Movement: speech and movement normal Mood: congruent mood Affect: normal affect DS: Data Vitals/I&O Vitals and I&O: Vital Signs Temperature 36.3 C L 09/26/19 14:30 Temperature Source Temporal Artery Scan 09/26/19 14:30 Pulse 69 09/26/19 13:33 Pulse Rhythm Regular 09/26/19 09:00 Pulse 69 09/26/19 13:32 Respiratory Rate 19 09/26/19 13:32 Respiratory Effort 09/26/19 09:00 Respiratory Depth Normal 09/26/19 09:00 Respiratory Pattern Normal 09/26/19 09:00 Blood Pressure 164/87 H 09/26/19 13:32 Blood Pressure Mean 105 09/26/19 13:32 Blood Pressure Position Sitting 09/25/19 16:15 Pulse Oximetry 98 09/26/19 13:32 Oxygen Delivery Method Room Air 09/26/19 12:05 Oxygen Flow Rate 0 09/26/19 12:05 Pain Level 0 09/26/19 14:50 Comment 09/23/19 20:32 [facility] [place] Medical History (Updated 09/22/19 @ 11:39 by Cynthia Thao MD) COPD (chronic obstructive pulmonary disease) (Inactive) Hypertension (Inactive) Social History Smoking/Tobacco Use Status: Current every day
== END 2019-09-26 14:50 | disposition home or self-care (01) | DRG 305 ==
LOC: ER 20:29 → ICU 09-22 01:41
PROVIDERS: Internal Medicine; Admitting Provider General Practice; Emergency Provider Student in an Organized Health Care Education/Training Program; PCP Nurse Practitioner Family; Visit Provider Internal Medicine
DX: J44.1 Chronic obstructive pulmonary disease with (acute) exacerbation (principal); I16.0 Hypertensive urgency; I10 Essential (primary) hypertension; R04.0 Epistaxis; Z91.128 Patient's intentional underdosing of medication regimen for other reason; R91.1 Solitary pulmonary nodule; F17.210 Nicotine dependence, cigarettes, uncomplicated; E87.6 Hypokalemia; E83.42 Hypomagnesemia
CPT/HCPCS: 30901; 36415; 80048; 80053; 80061; 80307; 85027; 94640; 96374; 99222; 99232; 99233; 99238; 99285; 99291; 71046; 71260; 81003; 81015; 83735; 84484; 85014; 85018; 85025; 85610; 87070; 87086; 87205; 99218; 99284; G0378; J3475; J3480; J3490; J7613; J7620

== ENCOUNTER 2025-05-31 16:42 | Outpatient (REF) | payer SELFPAY ==
[2025-05-31 16:23] LABS: Abs Immature Grans 0.02 10^3/uL (0.0-0.06); HCT 26.4 % (40.0-50.0); HGB 9.0 g/dL (13.5-17.5); Immature Grans % 0.3 %; MCH 29.9 pg (27.0-33.0); MCHC 34.1 % (32.0-36.0); MCV 88 fL (80-95); MPV 9.3 fL (8.0-11.0); Platelet Count 500 10^3/uL (130-400); RBC 3.01 10^6/uL (4.36-5.78); RDW 13.7 % (11.8-14.1); RDW-SD 44.0 fL; WBC 7.35 10^3/uL (4.4-10.8)
[2025-05-31 17:32] LABS: Iron 19 ug/dL (65-175); Total Iron Binding Capacity 218 ug/dL (250-450); Transferrin Sat 9 % (20-55)
[2025-05-31 18:49] LABS: Hemoglobin A1C 5.5 % (<5.7)
[2025-05-31 18:56] LABS: AST 10 U/L (15-37); Albumin 2.9 g/dL (3.4-5.0); Alkaline Phosphatase 97 U/L (46-116); Anion Gap 12.8 mmol/L (3-11); BUN 26 mg/dL (7-18); Bilirubin, Total 0.5 mg/dL (0.2-1.0); CO2 28.2 mmol/L (21.0-32.0); Calcium 9.2 mg/dL (8.5-10.1); Chloride 92 mmol/L (98-107); Glucose 148 mg/dL (74-106); Sodium 133 mmol/L (136-145); TSH (W/Ref FT4) 27.16 uIU/mL (0.36-3.74); Total Protein 6.8 g/dL (6.4-8.2); Vitamin B12 823 pg/mL (193-986); Vitamin D 25 Total 63 ng/mL (30-100)
[2025-05-31 19:26] LABS: ALT 10 U/L (16-63); Ferritin 221 ng/mL (26-388); Folate 14.7 ng/mL (8.6-20.0); Magnesium 1.8 mg/dL (1.8-2.4); Potassium 3.0 mmol/L (3.5-5.1)
== END 2025-05-31 16:43 | disposition home or self-care (01) ==
LOC: LBN 16:42
PROVIDERS: PCP Nurse Practitioner Family; Visit Provider Nurse Practitioner Gerontology
DX: E87.8 Other disorders of electrolyte and fluid balance, not elsewhere classified (principal); I50.22 Chronic systolic (congestive) heart failure; D50.9 Iron deficiency anemia, unspecified; R73.03 Prediabetes; R53.82 Chronic fatigue, unspecified; D51.9 Vitamin B12 deficiency anemia, unspecified; E55.9 Vitamin D deficiency, unspecified
CPT/HCPCS: 80053; 82306; 82607; 82728; 82746; 83036; 83540; 83550; 83735; 83880; 84439; 84443; 85025

== ENCOUNTER 2025-06-07 16:14 | Outpatient (REF) | payer MEDICARE, MEDICAID, SELFPAY ==
[2025-06-07 16:44] LABS: Anion Gap 10.6 mmol/L (3-11); BUN 24 mg/dL (7-18); CO2 31.4 mmol/L (21.0-32.0); Calcium 9.5 mg/dL (8.5-10.1); Chloride 89 mmol/L (98-107); Glucose 102 mg/dL (74-106); Potassium 3.6 mmol/L (3.5-5.1); Sodium 131 mmol/L (136-145)
== END 2025-06-07 16:15 | disposition home or self-care (01) ==
LOC: LBN 16:14
PROVIDERS: PCP Nurse Practitioner Family; Visit Provider Nurse Practitioner Gerontology
DX: E87.8 Other disorders of electrolyte and fluid balance, not elsewhere classified (principal)
CPT/HCPCS: 80048

== ENCOUNTER 2025-06-17 16:35 | Outpatient (REF) | payer MEDICARE, MEDICAID, SELFPAY ==
[2025-06-17 16:51] LABS: Abs Immature Grans 0.08 10^3/uL (0.0-0.06); HCT 30.0 % (40.0-50.0); HGB 10.2 g/dL (13.5-17.5); Immature Grans % 0.8 %; MCH 29.2 pg (27.0-33.0); MCHC 34.0 % (32.0-36.0); MCV 86 fL (80-95); MPV 8.6 fL (8.0-11.0); Platelet Count 607 10^3/uL (130-400); RBC 3.49 10^6/uL (4.36-5.78); RDW 13.5 % (11.8-14.1); RDW-SD 42.3 fL; WBC 10.09 10^3/uL (4.4-10.8)
[2025-06-17 16:53] LABS: ESR 69 mm/hr (0-20)
[2025-06-17 17:01] LABS: ALT 18 U/L (16-63); AST 14 U/L (15-37); Albumin 3.3 g/dL (3.4-5.0); Alkaline Phosphatase 197 U/L (46-116); Anion Gap 11.9 mmol/L (3-11); BUN 14 mg/dL (7-18); Bilirubin, Total 0.4 mg/dL (0.2-1.0); C-Reactive Protein 4.67 mg/dL (<or=0.5); CO2 24.1 mmol/L (21.0-32.0); Calcium 9.6 mg/dL (8.5-10.1); Chloride 91 mmol/L (98-107); Glucose 91 mg/dL (74-106); Potassium 4.8 mmol/L (3.5-5.1); Sodium 127 mmol/L (136-145); Total Protein 7.7 g/dL (6.4-8.2)
== END 2025-06-17 16:36 | disposition home or self-care (01) ==
LOC: LBN 16:35
PROVIDERS: PCP Nurse Practitioner Family; Visit Provider Nurse Practitioner Gerontology
DX: E87.8 Other disorders of electrolyte and fluid balance, not elsewhere classified (principal); D63.1 Anemia in chronic kidney disease
CPT/HCPCS: 80053; 85652; 85025; 86140

== ENCOUNTER 2025-06-21 17:39 | Outpatient (REF) | payer MEDICARE, MEDICAID, SELFPAY ==
[2025-06-21 18:44] LABS: Abs Immature Grans 0.04 10^3/uL (0.0-0.06); HCT 24.7 % (40.0-50.0); HGB 8.2 g/dL (13.5-17.5); Immature Grans % 0.3 %; MCH 29.4 pg (27.0-33.0); MCHC 33.2 % (32.0-36.0); MCV 89 fL (80-95); MPV 8.4 fL (8.0-11.0); Platelet Count 522 10^3/uL (130-400); RBC 2.79 10^6/uL (4.36-5.78); RDW 13.6 % (11.8-14.1); RDW-SD 44.4 fL; WBC 11.89 10^3/uL (4.4-10.8)
[2025-06-21 18:57] LABS: Anion Gap 10.9 mmol/L (3-11); BUN 28 mg/dL (7-18); CO2 25.1 mmol/L (21.0-32.0); Calcium 9.3 mg/dL (8.5-10.1); Chloride 88 mmol/L (98-107); Estimated GFR 47.23 (mL/min/1.73m2); Glucose 122 mg/dL (74-106); Potassium 4.5 mmol/L (3.5-5.1)
[2025-06-21 19:19] LABS: Poikilocytes 1+; Sodium 124 mmol/L (136-145)
== END 2025-06-21 17:40 | disposition home or self-care (01) ==
LOC: LBN 17:39
PROVIDERS: PCP Legal Medicine; Visit Provider Nurse Practitioner Gerontology
DX: E87.8 Other disorders of electrolyte and fluid balance, not elsewhere classified (principal); D63.1 Anemia in chronic kidney disease
CPT/HCPCS: 80048; 85025